=== PATIENT | male | born 1955 | race Caucasian/White ===

== ENCOUNTER 2016-11-08 17:30 | Inpatient (IN) | payer SELFPAY ==
[~2016-11-08] VITALS: Ht 170.2 cm; Wt 63.0 kg
[~2016-11-08 17:30] MED LIST: BUPR150T3 PO; MIRTA15 PO; TEGR100T PO; VIST50CA PO
[2016-11-08 17:41] VITALS: BP 90/67; PULSE 72; RESP 25; O2SAT 95
--- NOTE | 2016-11-08 18:19 | PD ---
HPI Chief Complaint: OD/ Ingestion Time Seen by Provider: 18:02 Travel History International Travel<30 days: No Contact w/Intl Traveler<30days: No Traveled to known affect area: No History of Present Illness HPI 61yo M with PMH of psych and hepatitis here with multiple complaints. As per [facility], pt was called by his mentally retarded son for being unresponsive and states his son was doing CPR but his eyes were open. States that narcan 0.4mg was given and pt became more awake and answer some questions. Pt admits to sniffing heroin. States he did too much. He is complaining of neck pain, bilateral shoulder pain, numbness in his legs. Pt is a poor history. States he cannot move his legs. Allergies-Medications (Allergen,Severity, Reaction): Coded Allergies: penicillin G (Unverified Allergy, Severe, SWELLING, 11/08/16) vancomycin (Unverified Allergy, Severe, BP ELEVATION, 11/08/16) Reported Meds & Prescriptions Reported Meds & Active Scripts Active Reported Remeron (Mirtazapine) 15 Mg Tab 15 Mg PO HS Tegretol-Xr (Carbamazepine) 100 Mg Tab 100 Mg PO TID Bupropion Hcl Xl (Bupropion HCl) 150 Mg Tab 150 Mg PO BID Vistaril (Hydroxyzine Pamoate) 50 Mg Cap 150 Mg PO BID Review of Systems Except as stated in HPI: all other systems reviewed are Neg Physical Exam Narrative GENERAL: 61yo M in mild distress. SKIN: Focused skin assessment warm/dry. HEAD: Atraumatic. Normocephalic. EYES: Pupils equal and round. No scleral icterus. No injection or drainage. ENT: No nasal bleeding or discharge. Mucous membranes pink and moist. NECK: +TTP cervical spine. Cervical spine collar placed. CARDIOVASCULAR: Regular rate and rhythm. No murmur appreciated. RESPIRATORY: No accessory muscle use. Clear to auscultation. Breath sounds equal bilaterally. GASTROINTESTINAL: Abdomen soft, non-tender, nondistended. No rebound tenderness or guarding. MUSCULOSKELETAL: No obvious deformities. No clubbing. No cyanosis. No edema. NEUROLOGICAL: AAOx2. No withdrawal from pain in bilateral lower extremity. Muscle strength 3/5 in bilateral upper extremity but unknown if it is due to shoulder pain. Decreased sensation in bilateral medial thigh. Rectal tone does seem decreased. Data Data Last Documented VS Vital Signs Date Time Temp Pulse Resp B/P (MAP) Pulse Ox O2 Delivery O2 Flow Rate FiO2 11/08/16 18:04 24 Nasal Cannula 1.00 11/08/16 17:41 72 90/67 (75) 95 Orders Orders Complete Blood Count With Diff (11/08/16 18:02) Basic Metabolic Panel (Bmp) (11/08/16 18:02) Ct Brain W/O Iv Contrast(Rout) (11/08/16 ) Ct Cerv Spine W/O Contrast (11/08/16 ) Chest, Single Ap (11/08/16 ) Apply Cervical Collar (11/08/16 18:02) Shoulder, Limited(2vws) (11/08/16 ) Shoulder, Limited(2vws) (11/08/16 ) Sodium Chlor 0.9% 1000 Ml Inj (Ns 1000 M (11/08/16 18:30) Lithograph Press Operator / Telemetry LEIDY.Q8H (11/08/16 18:20) End Tidal Co2 (Etco2) (11/08/16 ) Mri L Spine W/O Contrast (11/08/16 ) Drug Screen, Random Urine (11/08/16 19:00) Alcohol (Ethanol) (11/08/16 19:02) Salicylates (Aspirin) (11/08/16 19:02) Tylenol (Acetaminophen) (11/08/16 19:02) Labs Laboratory Tests Test 11/08/16 18:05 11/08/16 18:15 11/08/16 19:05 Blood Urea Nitrogen 36 MG/DL Creatinine 2.12 MG/DL Random Glucose 95 MG/DL Calcium Level 8.6 MG/DL Sodium Level 140 MEQ/L Potassium Level 3.9 MEQ/L Chloride Level 108 MEQ/L Carbon Dioxide Level 23.1 MEQ/L Anion Gap 9 MEQ/L Estimat Glomerular Filtration Rate 32 ML/MIN White Blood Count 12.2 TH/MM3 Red Blood Count 3.43 MIL/MM3 Hemoglobin 10.6 GM/DL Hematocrit 31.9 % Mean Corpuscular Volume 93.1 FL Mean Corpuscular Hemoglobin 30.9 PG Mean Corpuscular Hemoglobin Concent 33.2 % Red Cell Distribution Width 12.8 % Platelet Count 161 TH/MM3 Mean Platelet Volume 8.5 FL Neutrophils (%) (Auto) 93.5 % Lymphocytes (%) (Auto) 2.3 % Monocytes (%) (Auto) 4.0 % Eosinophils (%) (Auto) 0.2 % Basophils (%) (Auto) 0.0 % Neutrophils # (Auto) 11.4 TH/MM3 Lymphocytes # (Auto) 0.3 TH/MM3 Monocytes # (Auto) 0.5 TH/MM3 Eosinophils # (Auto) 0.0 TH/MM3 Basophils # (Auto) 0.0 TH/MM3 CBC Comment DIFF FINAL Differential Comment MDM Medical Decision Making Medical Screen Exam Complete: Yes Emergency Medical Condition: Yes Differential Diagnosis Cauda equina syndrome vs. heroin overdose vs. cervical spine fracture vs. psychosis Narrative Course 61yo M with heroin overdose s/p narcan by EVAC here with multiple complaints. Pt is a poor historian. BP was low and NS IVF given. Labs reviewed, mild leukocytosis at 12.2. H/H low at 10.6/31.9. Creatinine elevated at 2.12, no prior to compare. CXR was completed because there was supposedly CPR performed by son. CXR showed no acute cardiopulmonary abnormality. No PTX. Xray right shoulder negative. Xray left shoulder negative. CT brain, cspine and MRI LS is pending. Care is transferred to oncoming physician Dr. Farrar. Pt is currently still awake and no narcan needed in the ED. Pt placed on continuous cardiac monitoring. Diagnosis Primary Impression: Heroin overdose Qualified Codes: T40.1X1A - Poisoning by heroin, accidental (unintentional), initial encounter Imani Wang DO Nov 08, 2016 18:19
[2016-11-08] MEDS ORDERED: SODIUM CHLOR 0.9% 1000 ML INJ 1,000 ML IV ONE (18:30)
--- NOTE | 2016-11-08 18:50 | RADRPT ---
EXAM DATE/TIME: 11/08/2016 18:31 [facility] COMPARISON: No previous studies available for comparison. INDICATIONS : Evaluate lung status. CPR performed on patient tonight. Overdose. MEDICAL HISTORY : Unobtainable. SURGICAL HISTORY : Unobtainable. ENCOUNTER: Initial ACUITY: 1 day PAIN SCORE: Non-responsive. LOCATION: Bilateral chest FINDINGS: Portable AP view of the chest demonstrates a normal-sized cardiac silhouette. No effusion, consolidat ion, or pneumothorax is visualized. The bones and soft tissues demonstrate no acute abnormality. Lung s are underinflated. CONCLUSION: No acute cardiopulmonary abnormality is identified. Jerry Ghotra MD on November 08, 2016 at 18:48 Board Certified Radiologist. This report was verified electronically.
--- NOTE | 2016-11-08 18:51 | RADRPT ---
EXAM DATE/TIME: 11/08/2016 18:32 [facility] COMPARISON: No previous studies available for comparison. INDICATIONS : Left shoulder pain. Patient found unresponsive. MEDICAL HISTORY : Unobtainable. SURGICAL HISTORY : Unobtainable. ENCOUNTER: Initial ACUITY: 1 day PAIN SCORE: Non-responsive. LOCATION: Left shoulder. FINDINGS: 2 views of the left shoulder demonstrate no fracture or dislocation. The acromioclavicular joint is i ntact. No soft tissue abnormality is identified. The visualized portions of the left lung are clear and no displaced rib fracture is seen. CONCLUSION: No acute left shoulder abnormality is identified on this two-view examination. There is osteoarthriti s at the acromioclavicular joint. Jerry Ghotra MD on November 08, 2016 at 18:48 Board Certified Radiologist. This report was verified electronically.
--- NOTE | 2016-11-08 18:51 | RADRPT ---
EXAM DATE/TIME: 11/08/2016 18:35 [facility] COMPARISON: No previous studies available for comparison. INDICATIONS : Right shoulder pain. Patient found unresponsive. MEDICAL HISTORY : Unobtainable. SURGICAL HISTORY : Unobtainable. ENCOUNTER: Initial ACUITY: 1 day PAIN SCORE: Non-responsive. LOCATION: Right shoulder. FINDINGS: 2 views of the right shoulder demonstrate no fracture or dislocation. The acromioclavicular joint is intact but demonstrates mild osteoarthritis change. The visualized soft tissues demonstrate no abnorm ality. Visualized portions of the right lung are clear. No displaced rib fracture is seen. CONCLUSION: No acute right shoulder abnormality is identified. Jerry Ghotra MD on November 08, 2016 at 18:49 Board Certified Radiologist. This report was verified electronically.
[2016-11-08 19:01] LABS: AUTOMATED NEUTROPHIL # 11.4 TH/MM3 (1.8-7.7); EOSINOPHIL % 0.2 % (0.0-4.0); HEMATOCRIT 31.9 % (39.0-51.0); HEMO FLAGS DIFF FINAL; LYMPH % 2.3 % (9.0-44.0); LYMPHOCYTE # 0.3 TH/MM3 (1.0-4.8); MEAN CELL VOLUME 93.1 FL (80.0-100.0); MEAN CORPUSCULAR HEMOGLOBIN 30.9 PG (27.0-34.0); MEAN CORPUSCULAR HGB CONC 33.2 % (32.0-36.0); NEUT % 93.5 % (16.0-70.0); PLATELET COUNT 161 TH/MM3 (150-450); RED BLOOD COUNT 3.43 MIL/MM3 (4.50-5.90); RED CELL DISTRIBUTION WIDTH 12.8 % (11.6-17.2); WHITE BLOOD COUNT 12.2 TH/MM3 (4.0-11.0)
[2016-11-08 19:17] LABS: BICARBONATE 23.1 MEQ/L (21.0-32.0); POTASSIUM 3.9 MEQ/L (3.5-5.1)
--- NOTE | 2016-11-08 19:34 | RADRPT ---
EXAM DATE/TIME: 11/08/2016 18:39 [facility] COMPARISON: No previous studies available for comparison. INDICATIONS : Patient found unresponsive. RADIATION DOSE: 20.74 CTDIvol (mGy) MEDICAL HISTORY : Non-responsive. SURGICAL HISTORY : Non-responsive. ENCOUNTER: Initial ACUITY: 1 day PAIN SCALE: Non-responsive LOCATION: Bilateral Spine TECHNIQUE: Volumetric scanning of the cervical spine was performed. Multiplanar reconstructions in the sagittal, coronal and oblique axial planes were performed. Using automated exposure control and adjustment o f the mA and/or kV according to patient size, radiation dose was kept as low as reasonably achievable to obtain optimal diagnostic quality images. DICOM format image data is available electronically f or review and comparison. FINDINGS: There is normal sagittal spine alignment of the cervical spine. No anterolisthesis or retrolisthesis is present. The atlantoaxial relationship is within normal limits. There is no prevertebral soft tiss ue swelling present. No fracture or dislocation is identified. There is degenerative disc disease at C5-C6 and C6-C7. A partially calcified chronic disc protrusion is present at C3-C4. The visualized portions of the posterior fossa, paraspinous soft tissues, and upper lung zones demons trate no acute abnormality. CONCLUSION: 1. No acute cervical spine abnormality is identified. 2. Multilevel degenerative disc disease. Jerry Ghotra MD on November 08, 2016 at 19:29 Board Certified Radiologist. This report was verified electronically.
[2016-11-08 19:53] LABS: ACETAMINOPHEN LESS THAN 2.0 MCG/ML (10.0-30.0)
--- NOTE | 2016-11-08 19:54 | RADRPT ---
EXAM DATE/TIME: 11/08/2016 18:39 [facility] COMPARISON: No previous studies available for comparison. INDICATIONS : Found unresponsive after using heroin. RADIATION DOSE: 31.84 CTDIvol (mGy) MEDICAL HISTORY : Non-responsive. SURGICAL HISTORY : Non-responsive. ENCOUNTER: Initial ACUITY: 1 day PAIN SCALE: Non-responsive LOCATION: Bilateral cranial TECHNIQUE: Multiple contiguous axial images were obtained of the head. Using automated exposure control and adj ustment of the mA and/or kV according to patient size, radiation dose was kept as low as reasonably a chievable to obtain optimal diagnostic quality images. DICOM format image data is available electro nically for review and comparison. FINDINGS: CEREBRUM: The ventricles are normal. No evidence of midline shift, mass lesion, hemorrhage or acute infarction . No extra-axial fluid collections are seen. POSTERIOR FOSSA: The cerebellum and brainstem demonstrate no acute finding. The 4th ventricle is midline. The cerebe llopontine angle is unremarkable. EXTRACRANIAL: Visualized sinuses are clear. SKULL: The calvaria is intact. No evidence of skull fracture. CONCLUSION: No acute intracranial abnormality is identified. Jerry Ghotra MD on November 08, 2016 at 19:51 Board Certified Radiologist. This report was verified electronically.
[2016-11-08 20:08] LABS: ALCOHOL LESS THAN 3 MG/DL (0-5)
--- NOTE | 2016-11-08 20:21 | RADRPT ---
EXAM DATE/TIME: 11/08/2016 19:29 [facility] COMPARISON: No previous studies available for comparison. INDICATIONS : Lower extremity weakness after fall. MEDICAL HISTORY : Hepatitis C. Hypertension. SURGICAL HISTORY : Left wrist. Left ankle. ENCOUNTER: Subsequent ACUITY: 1 day PAIN SCORE: 0/10 LOCATION: back. TECHNIQUE: Multiplanar multisequence MRI of the lumbar spine was performed without contrast. FINDINGS: The most caudal appearing lumbar vertebra is numbered as L5. VERTEBRAE: Bone marrow signal is within normal limits. No fracture or compression deformity is present. There is 4 mm of anterolisthesis of L4 on L5. CONUS: Normal level and configuration. T12-L1: No disc herniation, canal stenosis, or neural foraminal stenosis. L1-L2: No disc herniation, canal stenosis, or neural foraminal stenosis. L2-L3: There is a diffuse disc bulge with possible small annular tear posteriorly. No canal stenosis or neur al foraminal stenosis is present. L3-L4: There is bilateral facet and ligamentum flavum hypertrophy with fluid in the facet joints. Minimal di ffuse disc bulge is present. There is no canal stenosis or neural foraminal narrowing. L4-L5: There is severe facet hypertrophy bilaterally with fluid in the facet joints. A moderate-sized diffus e disc bulge is present mildly effacing the lateral recesses and minimally narrowing the spinal canal . There is also mild bilateral neural foraminal narrowing. L5-S1: There are pars interarticularis defects without displacement. Bilateral facet hypertrophy is present. There is a diffuse disc bulge but no canal stenosis or neural foraminal narrowing is seen. There is a large cystic structure in the midline of the pelvis. CONCLUSION: 1. Grade 1 anterolisthesis at L4-L5 secondary to severe facet hypertrophy. Diffuse disc bulges presen t very mildly narrowing the spinal canal and there is mild neural foraminal narrowing bilaterally. 2. 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 3. Very large cystic structure within the pelvis presumably a very distended urinary bladder since it appears midline. Suggest correlation with the clinical examination. Jerry Ghotra MD on November 08, 2016 at 20:14 Board Certified Radiologist. This report was verified electronically.
--- NOTE | 2016-11-08 20:33 | PD ---
Physical Exam Date Seen by Provider: Nov 08, 2016 Data Data Last Documented VS Vital Signs Date Time Temp Pulse Resp B/P (MAP) Pulse Ox O2 Delivery O2 Flow Rate FiO2 11/08/16 21:33 70 16 100/60 (73) 95 Room Air 11/08/16 18:04 1.00 Orders Orders Complete Blood Count With Diff (11/08/16 18:02) Basic Metabolic Panel (Bmp) (11/08/16 18:02) Ct Brain W/O Iv Contrast(Rout) (11/08/16 ) Ct Cerv Spine W/O Contrast (11/08/16 ) Chest, Single Ap (11/08/16 ) Apply Cervical Collar (11/08/16 18:02) Shoulder, Limited(2vws) (11/08/16 ) Shoulder, Limited(2vws) (11/08/16 ) Sodium Chlor 0.9% 1000 Ml Inj (Ns 1000 M (11/08/16 18:30) Outreach Consultant / Telemetry LEIDY.Q8H (11/08/16 18:20) End Tidal Co2 (Etco2) (11/08/16 ) Mri L Spine W/O Contrast (11/08/16 ) Drug Screen, Random Urine (11/08/16 19:00) Alcohol (Ethanol) (11/08/16 19:02) Salicylates (Aspirin) (11/08/16 19:02) Tylenol (Acetaminophen) (11/08/16 19:02) Bladder Scan PRN (11/08/16 21:28) Salicylates (Aspirin) (11/08/16 23:05) Admit Order (Ed Use Only) (11/08/16 21:39) Labs Laboratory Tests Test 11/08/16 18:05 11/08/16 18:15 11/08/16 19:05 Blood Urea Nitrogen 36 MG/DL Creatinine 2.12 MG/DL Random Glucose 95 MG/DL Calcium Level 8.6 MG/DL Sodium Level 140 MEQ/L Potassium Level 3.9 MEQ/L Chloride Level 108 MEQ/L Carbon Dioxide Level 23.1 MEQ/L Anion Gap 9 MEQ/L Estimat Glomerular Filtration Rate 32 ML/MIN Acetaminophen Level LESS THAN 2.0 MCG/ML Ethyl Alcohol Level LESS THAN 3 MG/DL White Blood Count 12.2 TH/MM3 Red Blood Count 3.43 MIL/MM3 Hemoglobin 10.6 GM/DL Hematocrit 31.9 % Mean Corpuscular Volume 93.1 FL Mean Corpuscular Hemoglobin 30.9 PG Mean Corpuscular Hemoglobin Concent 33.2 % Red Cell Distribution Width 12.8 % Platelet Count 161 TH/MM3 Mean Platelet Volume 8.5 FL Neutrophils (%) (Auto) 93.5 % Lymphocytes (%) (Auto) 2.3 % Monocytes (%) (Auto) 4.0 % Eosinophils (%) (Auto) 0.2 % Basophils (%) (Auto) 0.0 % Neutrophils # (Auto) 11.4 TH/MM3 Lymphocytes # (Auto) 0.3 TH/MM3 Monocytes # (Auto) 0.5 TH/MM3 Eosinophils # (Auto) 0.0 TH/MM3 Basophils # (Auto) 0.0 TH/MM3 CBC Comment DIFF FINAL Differential Comment Salicylates Level 23.5 MG/DL MDM Medical Record Reviewed: Yes Supervised Visit with DHIRAJ: No Interpretation(s) Vital Signs Date Time Temp Pulse Resp B/P (MAP) Pulse Ox O2 Delivery O2 Flow Rate FiO2 11/08/16 18:04 24 Nasal Cannula 1.00 11/08/16 17:41 72 25 90/67 (75) 95 CBC & BMP Diagram 11/08/16 18:05 Calcium Level 8.6 11/08/16 18:15 Differential Diagnosis Differential includes cauda equina, psychogenic versus neurological gait dysfunction, cervical spine fracture, intracranial hemorrhage, psychosis, electrolyte abnormality Narrative Course Patient was sent out to me by Dr. Wang and change of shift. Patient pending MRI/ ct results and dispo Patient is 61-year-old male who presents to emergency room with multiple complaints. Patient endorsed to me that he was washing his dishes today and fell backwards and hit his head on his bed. Patient reports that he was able to get up and walk after this and began to wash dishes again, reports that he has not remember what happened after this. Patient told my colleague that he was snorting heroin today and accidentally overdose, reports that he doesn't remember what happened after this. He does remember taking aspirin as well as acetaminophen as he is chronic pains to his left ankle. He took these medications this morning for pain control and not in attempt to commit suicide. As per EMS, when they arrived on scene, patient's son Was Performing CPR. Patient was given 0.4 mg of Narcan. Patient was arousable after Narcan was administered, reports that he was complaining of neck pain, bilateral shoulder pain as well as inability to walk. CT of the head, cervical spine, bilateral shoulders, x-ray of the chest and MRI of L-spine was obtained. X-rays with benign except that patient does have osteoarthritis to the left shoulder. MRI of the L-spine shows grade 1 anterolisthesis at L4 to L5 secondary to severe facet hypertrophy. 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 There is a very large thick structure within the pelvis presumably very distended urinary bladder. Bladder scan ordered. Patient is unable to ambulate this time, he is unable to move his legs, he does not respond to painful stimuli of his lower extremities. Given that he cannot ambulate and move extremities, plan to admit him to the hospital as I am unsure why patient cannot ambulate. This concerns for possible aspirin overdose, ASA 23.5 - patient will need a repeat asa level at 2305 Patient will require admission to the hospital case reviewed with dr. anthony who accepts pt to service Critical Care Narrative Aggregate critical care time was 45 minutes. Time to perform other separately billable procedures was not included in the critical care time. My time did not include minutes spent treating any other patients simultaneously or on activities that did not directly contribute to the patient's treatment. The services I provided to this patient were to treat and/or prevent clinically significant deterioration that could result in: , decompensation, deterioration I provided critical care services requiring my management, as noted below: Chart data review, documentation time, medication orders and management, vital sign assessments/reviewing monitor data, ordering and reviewing lab tests, ordering and interpreting/reviewing x-rays and diagnostic studies, care of the patient and discussion of the patient with the admitting physicians. Diagnosis Primary Impression: Heroin overdose Qualified Codes: T40.1X1A - Poisoning by heroin, accidental (unintentional), initial encounter Additional Impressions: Neurologic gait dysfunction Accidental aspirin overdose Renal insufficiency Admitting Information Admitting Physician Requests: Michelle Forrester DO Nov 08, 2016 20:33
[2016-11-08 21:33] VITALS: BP 100/60; PULSE 70; RESP 16; O2SAT 95
[2016-11-08] MEDS ORDERED: NALOXONE HCL 0.4 MG/ML AMP IV PRN (21:45)
[2016-11-08] MEDS ORDERED: SODIUM CHLORIDE 0.9% FLUSH 10 ML FLUSH IV FLUSH PRN (21:45)
[2016-11-08 23:54] VITALS: BP 98/60; PULSE 70; RESP 16; O2SAT 95
[2016-11-09] VITALS (13 sets, daily range): BP systolic 96–113; BP diastolic 56–67; PULSE 60–82; RESP 16–22; TEMP 97.6–99.6; O2SAT 95–98
[2016-11-09] MEDS ORDERED: WELLBUTRIN PO (00:02)
[2016-11-09] MEDS ORDERED: XANA2TAB2 PO (00:02)
[2016-11-09] MEDS ORDERED: TRAZ300T2 PO (00:02)
[2016-11-09] MEDS ORDERED: TEGR200T PO (00:02)
[2016-11-09] MEDS: SODIUM CHLOR 0.9% 1000 ML INJ 1,000 ML IV SCH ×2 (08:18→22:50)
[2016-11-09] MEDS: SODIUM CHLORIDE 0.9% FLUSH 10 ML FLUSH IV FLUSH SCH ×2 (08:19→21:00)
[2016-11-09] MEDS ORDERED: PNEUMOCOCCAL POLYVALENT INJ 25 MCG/0.5 ML SYR IM ONE (09:00)
[2016-11-09 10:26] LABS: AUTOMATED NEUTROPHIL # 10.9 TH/MM3 (1.8-7.7); HEMATOCRIT 30.1 % (39.0-51.0); HEMO FLAGS DIFF FINAL; LYMPH % 1.4 % (9.0-44.0); LYMPHOCYTE # 0.2 TH/MM3 (1.0-4.8); MEAN CORPUSCULAR HEMOGLOBIN 31.2 PG (27.0-34.0); MEAN CORPUSCULAR HGB CONC 33.6 % (32.0-36.0); MONO % 3.9 % (0.0-8.0); NEUT % 94.7 % (16.0-70.0); PLATELET COUNT 166 TH/MM3 (150-450); RED BLOOD COUNT 3.23 MIL/MM3 (4.50-5.90); WHITE BLOOD COUNT 11.6 TH/MM3 (4.0-11.0)
[2016-11-09 10:53] LABS: BICARBONATE 21.1 MEQ/L (21.0-32.0); POTASSIUM 3.6 MEQ/L (3.5-5.1)
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
[2016-11-09] MEDS: traZODone HCL 100 MG TAB PO SCH ×2 (14:14→18:32)
[2016-11-09] MEDS: BACLOFEN 10 MG TAB PO SCH ×2 (14:15→22:51)
[2016-11-09] MEDS: carBAMazepine 200 MG TAB PO SCH ×2 (14:15→18:32)
[2016-11-09] MEDS: ALPRAZolam 1 MG TAB PO PRN (14:19)
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
--- NOTE | 2016-11-09 17:35 | RADRPT ---
EXAM DATE/TIME: 11/09/2016 16:18 [facility] COMPARISON: CT CERVICAL SPINE W/O CONTRAST, November 08, 2016, 18:39. INDICATIONS : Inability to ambulate. MEDICAL HISTORY : Hepatitis C. SURGICAL HISTORY : Pins in left wrist and left ankle. ENCOUNTER: Subsequent ACUITY: 2 day PAIN SCORE: 0/10 LOCATION: neck. TECHNIQUE: Multiplanar, multisequence MRI examination of the cervical spine was performed. FINDINGS: There is diffuse disc desiccation however there is slight increased signal at C5-6 and C6-7 disc spac es. moderate disc space narrowing at C5-6 and C6-7. Mild multilevel osteophyte formation. There is mi ld diffuse increased T2 signal within the cervical spinal cord from C3 through C7. There is preverteb ral soft tissue swelling in the retropharyngeal edema. C2-C3: The thecal sac has a normal configuration. There is no evidence of disc herniation or spinal canal s tenosis. The neural foramina are patent bilaterally. C3-C4: Broad-based central disc protrusion with mass effect on the cord and moderate canal narrowing. C4-C5: Tiny broad-based central protrusion effaces the thecal sac with moderate canal narrowing. Facet and u ncovertebral hypertrophy and mild bilateral foraminal narrowing. C5-C6: Diffuse disc osteophyte complex. Uncovertebral hypertrophy and severe right greater than left foramin al narrowing. Moderate canal stenosis with effacement of ventral thecal sac. C6-C7: Diffuse disc osteophyte complex with mild canal narrowing. Uncovertebral hypertrophy and severe right greater than left foraminal narrowing. C7-T1: Left central disc protrusion abuts the cord with mild canal, no foraminal narrowing. CONCLUSION: 1. Moderate multilevel canal stenosis secondary to degenerative disc disease. 2. There is associated mild impression on the cord and abnormal increased T2 signal within the spinal cord. It is difficult to exclude mild expansion of the cord on sagittal series. 3. There is mild prevertebral soft tissue swelling identified. Petey Oseguera MD on November 09, 2016 at 17:27 Board Certified Radiologist. This report was verified electronically.
--- NOTE | 2016-11-09 17:41 | RADRPT ---
EXAM DATE/TIME: 11/09/2016 16:18 [facility] COMPARISON: CT BRAIN W/O CONTRAST, November 08, 2016, 18:39. INDICATIONS : Inability to ambulate. MEDICAL HISTORY : Hepatitis C. SURGICAL HISTORY : Pins in left wrist and left ankle. ENCOUNTER: Subsequent ACUITY: 2 day PAIN SCORE: 0/10 LOCATION: head. TECHNIQUE: Multiplanar, multisequence MRI of the brain was performed without contrast. FINDINGS: There is a focal area of restricted diffusion in the left cerebellar hemisphere felt to represent an acute to subacute area of infarction. There is no surrounding edema. No other foci of infarction are seen. There is no evidence of intracranial hemorrhage. No concerning masses. CONCLUSION: 1. Left cerebellar infarct, lacunar. Petey Oseguera MD on November 09, 2016 at 17:38 Board Certified Radiologist. This report was verified electronically.
--- NOTE | 2016-11-09 17:51 | RADRPT ---
EXAM DATE/TIME: 11/09/2016 16:18 [facility] COMPARISON: MRI BRAIN W/O CONTRAST, November 09, 2016, 16:18. MRI CERVICAL SPINE W/O CONTRAST, November 09, 2016, 16 :18. INDICATIONS : Inability to ambulate. MEDICAL HISTORY : Hepatitis C. SURGICAL HISTORY : Pins in left wrist and left ankle. ENCOUNTER: Subsequent ACUITY: 2 day PAIN SCORE: 0/10 LOCATION: back. TECHNIQUE: Multiplanar multisequence MRI of the thoracic spine was performed. FINDINGS: VERTEBRA: Normal vertebral body height. Homogeneous marrow signal. There is slight disc desiccation. Minimal a nterior osteophyte formation greatest at T11 and T12. There is degenerative disc disease within the c ervical spine which is incompletely evaluated on this study. ALIGNMENT: Normal. CORD: Normal position and configuration. T1-T2: Normal. T2-T3: The thecal sac has a normal diameter. No evidence of disc bulge or protrusion. T3-T4: The thecal sac has a normal diameter. No evidence of disc bulge or protrusion. T4-T5: The thecal sac has a normal diameter. No evidence of disc bulge or protrusion. T5-T6: The thecal sac has a normal diameter. No evidence of disc bulge or protrusion. T6-T7: A tiny central disc protrusion without canal or foraminal narrowing. T7-T8: The thecal sac has a normal diameter. No evidence of disc bulge or protrusion. T8-T9: The thecal sac has a normal diameter. No evidence of disc bulge or protrusion. T9-T10: Tiny right central disc bulge with no canal or foraminal narrowing. T10-T11: The thecal sac has a normal diameter. No evidence of disc bulge or protrusion. T11-T12: The thecal sac has a normal diameter. No evidence of disc bulge or protrusion. T12-L1: The thecal sac has a normal diameter. No evidence of disc bulge or protrusion. CONCLUSION: 1. There is degenerative disc disease of the cervical spine which is incompletely evaluated on this s tudy. 2. The thoracic spine is normal for age with minimal degenerative changes and no canal or foraminal s tenosis. Petey Oseguera MD on November 09, 2016 at 17:48 Board Certified Radiologist. This report was verified electronically.
[2016-11-09] MEDS ORDERED: DEXTROSE 50% IN WATER 50 ML VIAL(D50) IV PUSH PRN (18:00)
[2016-11-09] MEDS ORDERED: SODIUM CHLORIDE 0.9% FLUSH 5 ML FLUSH IV FLUSH PRN (18:00)
[2016-11-09] MEDS ORDERED: GLUCAGON 1 MG/ML VIAL OTHER PRN (18:00)
[2016-11-09 18:16] LABS: BACTERIA, URINE RARE /hpf; BLOOD, URINE LARGE (NEG); COMMENT (UR) CULTURE INDICATED; CULTURE IF INDICATED CULTURE INDICATED; GLUCOSE,URINE NEG (NEG); HYALINE CAST, URINE 2 /lpf (RARE); KETONE, URINE NEG (NEG); NITRITE,URINE NEG (NEG); PH, URINE 5.5 (5.0-8.5); URINE COLOR YELLOW (YELLW/STRAW)
[2016-11-09] MEDS: ASPIRIN 81 MG CHEW TAB PO SCH (18:32)
--- NOTE | 2016-11-09 20:20 | MG ---
cc: MIGUELANGEL KING MD Lab No: Date: 11/09/16 Age: 61 Sex: M Race: DATE OF [address] Cowan MEDICAL HISTORY History of hypertension, chest pain, psychiatric problems, PTSD, bipolar depression, anxiety. Daily use of heroin, Xanax use, caffeine and tobacco use. MEDICATIONS 1. Remeron. 2. Tegretol XR. 3. Bupropion. 4. Vistaril. DESCRIPTION The EEG recording is excessively contaminated by movement and muscle artifact. In the readable portion of the EEG the background activity is 8-9 Hz alpha posterior, bilateral and symmetrical. Superimposed by excess beta activity. Hyperventilation was not done. Photic stimulation did not elicit a driving response. There were no electrographic seizures or epileptiform discharges seen. INTERPRETATION This is a normal awake EEG. Excess beta activity is a nonspecific finding that may be related to medication side effects like benzos and barbiturates. There is excessive movement and muscle artifact during the recording that limit the interpretation of the EEG. For a better yield you may do a follow up EEG, clinical correlation is recommended. Miguelangel King MD RGO/SUZY /4:04 PM /8:12 PM MTDD
[2016-11-09] MEDS: INSULIN ASPART SUPPLEMENTAL SCALE SQ SCH (21:00)
[2016-11-09 22:39] LABS: HEMOGLOBIN A1a 0.8 %; HEMOGLOBIN A1b 1.8 %; HEMOGLOBIN LA1C 2.2 %
[2016-11-09 22:40] LABS: HEMOGLOBIN Ao 85.2 %
[2016-11-09] MEDS: SODIUM CHLORIDE 0.9% FLUSH 5 ML FLUSH IV FLUSH SCH (22:51)
--- NOTE | 2016-11-09 23:05 | RADRPT ---
EXAM DATE/TIME: 11/09/2016 21:00 [facility] COMPARISON: No previous studies available for comparison. INDICATIONS : Cerebrovascular accident. MEDICAL HISTORY : Hypertension. Possible PA. Possible CHF. PTSD. Bipolar disorder. Depression. Anxiety. Hepatitis. Substance abuse. SURGICAL HISTORY : Left ankle surgery. Left wrist surgery. ENCOUNTER: Initial ACUITY: 1 day PAIN SCORE: Nonresponsive. LOCATION: Bilateral neck PEAK SYSTOLIC VELOCITIES (cm/sec): ICA/CCA RATIO: Right: 1.0 Left: 0.6 ICA: Right: 74 Left: 72 CCA: Right: 88 Left: 119 ECA: Right: 88 Left: 101 VERTEBRAL: Right: 120 antegrade Left: 132 antegrade Elevated flow velocities and ICA/CCA ratios have been found to correlate with increased degrees of vessel stenosis, calculated as percentage of diameter relative to a normal segment of distal ICA/CCA FINDINGS: RIGHT CAROTID: No significant stenosis is visualized. The waveforms are within normal limits. LEFT CAROTID: No significant stenosis is visualized. The waveforms are within normal limits. VERTEBRAL ARTERIES: Antegrade flow is seen in both vertebral arteries. MISCELLANEOUS: None. CONCLUSION: 1. Negative for carotid stenosis or significant plaque formation. Vertebral artery flow antegrade joceline aterally. Aldair Garcia MD on November 09, 2016 at 23:03 Board Certified Radiologist. This report was verified electronically.
[2016-11-10] VITALS (14 sets, daily range): BP systolic 117–154; BP diastolic 67–94; PULSE 69–91; RESP 18–24; TEMP 98.5–103; O2SAT 20–96
[2016-11-10 04:46] LABS: LYMPH % 2.5 % (9.0-44.0); LYMPHOCYTE # 0.2 TH/MM3 (1.0-4.8); MEAN CELL VOLUME 92.2 FL (80.0-100.0); MEAN CORPUSCULAR HEMOGLOBIN 30.7 PG (27.0-34.0); MEAN CORPUSCULAR HGB CONC 33.3 % (32.0-36.0); MONO % 5.3 % (0.0-8.0); NEUT % 92.2 % (16.0-70.0); PLATELET COUNT 173 TH/MM3 (150-450); RED BLOOD COUNT 3.14 MIL/MM3 (4.50-5.90); RED CELL DISTRIBUTION WIDTH 13.4 % (11.6-17.2); WHITE BLOOD COUNT 8.7 TH/MM3 (4.0-11.0)
[2016-11-10 04:48] LABS: HEMO FLAGS AUTO DIFF
[2016-11-10 05:12] LABS: ALT (GPT) 32 U/L (12-78); ANION GAP 9 MEQ/L (5-15); AST (GOT) 61 U/L (15-37); BICARBONATE 21.9 MEQ/L (21.0-32.0); BLOOD UREA NITROGEN 65 MG/DL (7-18); CHLORIDE 104 MEQ/L (98-107); GLOMERULAR FILTRATION RATE 29 ML/MIN (>89); SODIUM (NA) 135 MEQ/L (136-145)
[2016-11-10 05:25] LABS: ALKALINE PHOSPHATASE 87 U/L (45-117); HDL CHOLESTEROL 25.8 MG/DL (40.0-60.0); LDL CHOLESTEROL 46 MG/DL (0-99); TOTAL BILIRUBIN ADULT 0.4 MG/DL (0.2-1.0)
[2016-11-10] MEDS: BACLOFEN 10 MG TAB PO SCH ×3 (05:34→23:01)
[2016-11-10] MEDS: INSULIN ASPART SUPPLEMENTAL SCALE SQ SCH (05:38)
[2016-11-10 06:33] LABS: BANDS 5 % (0-6); NEUTROPHIL # MANUAL DIFF 8.4 TH/MM3 (1.8-7.7); POLYS (SEG NEUTROPHILS) 91 % (16-70); WBC DIFF SAMPLE 100
[2016-11-10 06:34] LABS: SCAN/DIFF FINAL DIFF MANUAL
[2016-11-10 06:35] LABS: PLATELET ESTIMATE SMEAR NORMAL (NORMAL); PLATELET MORPHOLOGY NORMAL (NORMAL)
[2016-11-10] MEDS: ACETAMINOPHEN 325 MG TAB PO PRN (07:49)
[2016-11-10] MEDS: traZODone HCL 100 MG TAB PO SCH (09:00)
[2016-11-10] MEDS: SODIUM CHLORIDE 0.9% FLUSH 5 ML FLUSH IV FLUSH SCH ×2 (09:00→21:00)
[2016-11-10] MEDS ORDERED: CIPROFLOXACIN 200 MG PREMIX 100 ML IV SCH (09:00)
[2016-11-10] MEDS ORDERED: SODIUM CHLOR 0.9% 1000 ML INJ 1,000 ML IV ONE (09:15)
[2016-11-10] MEDS: carBAMazepine 200 MG TAB PO SCH ×3 (09:19→17:26)
[2016-11-10] MEDS: SODIUM CHLORIDE 0.9% FLUSH 10 ML FLUSH IV FLUSH SCH (09:19)
[2016-11-10] MEDS: ASPIRIN 81 MG CHEW TAB PO SCH (09:19)
--- NOTE | 2016-11-10 09:20 | HHI.PR ---
Subjective Remarks The patient is lethargic this morning. He reports excruciating lower back pain. He has developed a fever of 103. He is oriented to self only. He is not moving any of his extremities. He keeps his head deviated to the right. He is tachypneic on my exam. Objective Vitals Vital Signs Date Time Temp Pulse Resp B/P (MAP) Pulse Ox O2 Delivery O2 Flow Rate FiO2 11/10/16 08:15 21 11/10/16 07:26 103.0 91 18 121/73 (89) 94 11/10/16 04:10 84 11/10/16 03:48 100.6 82 21 121/69 (86) 95 11/10/16 00:15 69 11/09/16 22:59 98.4 68 20 98/56 (70) 95 11/09/16 20:41 21 11/09/16 20:37 98.6 60 22 103/62 (76) 95 11/09/16 20:15 62 11/09/16 17:30 69 11/09/16 17:28 98.3 69 16 108/67 (81) 96 11/09/16 12:10 82 11/09/16 11:11 97.8 70 16 101/63 (76) 95 I/O 11/09/16 11/09/16 11/09/16 11/10/16 11/10/16 11/10/16 06:59 14:59 22:59 06:59 14:59 22:59 Intake Total 1000 ml 1000 ml 1090 ml Balance 1000 ml 1000 ml 1090 ml Intake Oral 1000 ml 100 ml IV Total 1000 ml 990 ml # Voids 3 Result Diagram: 11/10/16 0415 11/10/16 0415 Imaging Last Impressions Thoracic Spine MRI 11/09/16 0000 Signed Impressions: Service Date/Time: Wednesday, November 09, 2016 16:18 - CONCLUSION: 1. There is degenerative disc disease of the cervical spine which is incompletely evaluated on this study. 2. The thoracic spine is normal for age with minimal degenerative changes and no canal or foraminal stenosis. Petey Oseguera MD Cervical Spine MRI 11/09/16 0000 Signed Impressions: Service Date/Time: Wednesday, November 09, 2016 16:18 - CONCLUSION: 1. Moderate multilevel canal stenosis secondary to degenerative disc disease. 2. There is associated mild impression on the cord and abnormal increased T2 signal within the spinal cord. It is difficult to exclude mild expansion of the cord on sagittal series. 3. There is mild prevertebral soft tissue swelling identified. Petey Oseguera MD Carotid Artery Ultrasound 11/09/16 0000 Signed Impressions: Service Date/Time: Wednesday, November 09, 2016 21:00 - CONCLUSION: 1. Negative for carotid stenosis or significant plaque formation. Vertebral artery flow antegrade bilaterally. Aldair Garcia MD Brain MRI 11/09/16 0000 Signed Impressions: Service Date/Time: Wednesday, November 09, 2016 16:18 - CONCLUSION: 1. Left cerebellar infarct, lacunar. Petey Oseguera MD Shoulder X-Ray 11/08/16 Signed Impressions: Service Date/Time: Tuesday, November 08, 2016 18:32 - CONCLUSION: No acute left shoulder abnormality is identified on this two-view examination. There is osteoarthritis at the acromioclavicular joint. Jerry Ghotra MD Lumbar Spine MRI 11/08/16 0000 Signed Impressions: Service Date/Time: Tuesday, November 08, 2016 19:29 - CONCLUSION: 1. Grade 1 anterolisthesis at L4-L5 secondary to severe facet hypertrophy. Diffuse disc bulges present very mildly narrowing the spinal canal and there is mild neural foraminal narrowing bilaterally. 2. 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 3. Very large cystic structure within the pelvis presumably a very distended urinary bladder since it appears midline. Suggest correlation with the clinical examination. Jerry Ghotra MD Head CT 11/08/16 0000 Signed Impressions: Service Date/Time: Tuesday, November 08, 2016 18:39 - CONCLUSION: No acute intracranial abnormality is identified. Jerry Ghotra MD Chest X-Ray 11/08/16 0000 Signed Impressions: Service Date/Time: Tuesday, November 08, 2016 18:31 - CONCLUSION: No acute cardiopulmonary abnormality is identified. Jerry Ghotra MD Cervical Spine CT 11/08/16 0000 Signed Impressions: Service Date/Time: Tuesday, November 08, 2016 18:39 - CONCLUSION: 1. No acute cervical spine abnormality is identified. 2. Multilevel degenerative disc disease. Jerry Ghotra MD Objective Remarks GENERAL: Lethargic. Reports excruciating back pain with any movements. Cannot move any extremities. CARDIOVASCULAR: Normal rate and regular rhythm without murmurs, gallops, or rubs. RESPIRATORY: Tachypneic. Diminished breath sounds at the bases. Otherwise clear to auscultation bilaterally. GASTROINTESTINAL: Abdomen soft, non-tender, non-distended. Normal active bowel sounds MUSCULOSKELETAL: Extremities without cyanosis, or edema. NEURO: Alert to self only. Can answer some simple questions. Cannot move any extremities. PSYCH: At times appeared to be hallucinating. A/P Assessment and Plan 61-year-old male with a medical history significant for psychiatric illness, chronic pain, opiate abuse who was admitted with possible overdose and decreased lower extremity strength. Patient is found to have a lacunar stroke. He also appear to be septic with no clear source of infection. CVA: - Per stroke protocol. Keep head of bed flat. Supportive care with IV fluid. Neurochecks. - Neurology following. Appreciate follow-up recommendations. Patient is currently on 81 mg aspirin. - Carotid ultrasound unremarkable. 2-D echo ordered. Possible sepsis: Patient is a known IV drug user. He was found down. He presented with leukocytosis, have since developed a fever. Abnormal urinalysis. Chest x-ray unremarkable - Obtain blood cultures. - Patient is allergic to vancomycin and penicillin. Start aztreonam and Flagyl. - Consult infectious disease for assistance with antibiotics. Probable drug overdose: Patient's toxicology was positive for cocaine, opiates, and benzodiazepines. Salicylate level slightly above normal. Patient was found down and he responded to Narcan given by EMS. Continue to monitor neuro status. Avoid sedating medications. Discontinue trazodone. Acute renal failure: Unknown baseline. Renal function slightly worse today. Likely related to dehydration and prerenal azotemia Give 1 L normal saline bolus. Increase IV fluid to 125 cc per hour. Follow up BMP in a.m. Place [facility] for accurate I/O Back pain: Acute on chronic. C-spine CT as above. -On baclofen -Heating pad History of anxiety/depression: Chronic. -Continue home Tegretol. DC trazodone to avoid oversedation. Xanax as needed. -Continue Wellbutrin DVT prophylaxis: Start Heparin. Discharge Planning Transferred to ICU. Patient is critically ill with a debilitating stroke, tachypneic, septic. Need closer monitoring. Bogdan Mckeon MD Nov 10, 2016 09:20
[2016-11-10] MEDS: D5-1/2 NS + KCL 10 MEQ INJ 1,000 ML IV SCH ×2 (11:16→17:27)
[2016-11-10] MEDS: AZTREONAM INJ 2,000 MG in SODIUM CHLORIDE 0.9% INJ 100 ML IV SCH ×2 (11:17→17:28)
[2016-11-10] MEDS: metroNIDAZOLE 500 MG INJ 100 ML IV SCH ×2 (11:22→17:26)
[2016-11-10] MEDS: HEPARIN SODIUM - SQ 10,000 UNITS/ML VIAL SQ SCH ×2 (11:23→23:01)
--- NOTE | 2016-11-10 16:01 | MB ---
cc: DARIN GUY MD DATE OF CONSULTATION: 11/10/2016 REQUESTING PHYSICIAN: Dr. Mckeon REASON FOR CONSULTATION: Probable sepsis. IVDU. ALLERGIES VANCO PENICILLIN HISTORY OF PRESENT ILLNESS This is a 61-year-old white male who was brought to the emergency department after he was found down. The patient reportedly was given Narcan for potential drug overdose. It is noted that the paramedics found his son giving him CPR when the arrived on the scene. The patient is currently somnolent but he awakens easily and this is eyes open for me and respond to questions but always answers "I do not know". Information is obtained from the medical record. The patient is noted to be an IV drug user. He denies use of IV drugs to me. He admits to being on methadone. The patient was having difficulty moving his legs. He also had difficulty moving the upper extremities. An MRI of the brain showed left cerebellar infarct. Blood cultures were taken and results are pending. Urinalysis revealed 45 white cells. Urine culture has less than 10,000 colonies of gram-positive justino. He the patient has fever with temperature of 103 degrees early this morning. His white blood cell count was 12.2 yesterday and today it is down to 8.7. Chest x-ray shows no acute cardiopulmonary disease. The patient states that he has pain in his back. He has had scan of the thoracic, cervical and lumbar spine. Lumbar spine shows grade I anterolisthesis at L4-L5. Severe facet hypertrophy. Diffuse disk bulges present with mild narrowing. Thoracic MRI shows degenerative disk disease at the cervical spine. The cervical MRI showed moderate multilevel canal stenosis secondary to the degenerative disk disease. PAST MEDICAL HISTORY: 1. Chronic pain with opiate abuse. 2. psychiatric illness. 3. History of anxiety, depression. The patient reportedly uses heroin daily. ALLERGIES VANCOMYCIN PENICILLIN MEDICATIONS 1. Aztreonam 2. Metronidazole. 3. Tegretol. 4. Baclofen. 5. Xanax. SOCIAL HISTORY: Positive tobacco use one pack a day, positive substance abuse in the form of heroin. No alcohol noted. FAMILY HISTORY Unable to obtain. REVIEW OF SYSTEMS Review of systems difficult to obtain because of the patient's responses. PHYSICAL EXAMINATION: IN GENERAL: This is a frail, appearing thin male who is in no acute distress. He is somnolent. VITAL SIGNS: Include temperature 101 degrees, heart rate 72. Blood pressure 137/83, respirations 20. HEAD, EYES, EARS, NOSE, AND THROAT: Head is atraumatic. The extraocular movements appear grossly intact. Pupils reactive to light. No icterus. Oropharynx, no visible lesions. NECK: The neck is supple without adenopathy. LUNGS: Decreased breath sounds. HEART: Regular rate and rhythm. No murmurs or rubs or gallops. ABDOMEN: Bowel sounds present, soft and flat, nontender. RECTUM: Not performed. EXTREMITIES: No clubbing or cyanosis or edema. SKIN: No rash. NEUROLOGIC: Unable to fully assess. The patient just barely closes the right hand. Otherwise no movement elicited at the extremities. PSYCHIATRIC: Psych unable to assess. LABORATORY DATA WBC 8.7, platelets 173, 92% neutrophils, hemoglobin 9.7, creatinine 2.29, BUN 65, estimated GFR 29, sodium 135. IMPRESSION 1. Fever questionable etiology. Probable sepsis. 2. Acute renal disease probably related to drug ingestion. 3. Probable drug toxicity. 4. Allergy to PENICILLIN AND VANCOMYCIN. 5. Cerebellar infarct. RECOMMENDATIONS 1. Continue aztreonam 2. Continue metronidazole. 3. Monitor blood cultures. 4. Monitor temperature. Thank you for this consultation. I will follow the patient's progress with you and make further recommendations upon followup if necessary. Darin Guy MD FD/sharri /2:19 PM /3:34 PM [facility] SYSTEMMerlin
--- NOTE | 2016-11-10 20:00 | HHI.PR ---
Subjective Remarks febrile still unable to move ue and le only slightly in rue/hand. verbal,not short of breath,no swallowing issues Objective Vital Signs Date Time Temp Pulse Resp B/P (MAP) Pulse Ox O2 Delivery O2 Flow Rate FiO2 11/10/16 18:00 72 11/10/16 16:00 70 11/10/16 16:00 98.5 71 18 137/88 (104) 94 11/10/16 14:00 73 11/10/16 12:00 72 11/10/16 12:00 100.5 69 18 120/72 (88) 94 11/10/16 12:00 75 11/10/16 11:00 100.5 73 18 117/67 (84) 94 11/10/16 09:21 101.0 11/10/16 08:15 21 11/10/16 08:00 88 11/10/16 07:26 103.0 91 18 121/73 (89) 94 11/10/16 04:10 84 11/10/16 03:48 100.6 82 21 121/69 (86) 95 11/10/16 00:15 69 11/09/16 22:59 98.4 68 20 98/56 (70) 95 11/09/16 20:41 21 11/09/16 20:37 98.6 60 22 103/62 (76) 95 11/09/16 20:15 62 I/O 11/09/16 11/09/16 11/09/16 11/10/16 11/10/16 11/10/16 06:59 14:59 22:59 06:59 14:59 22:59 Intake Total 1000 ml 1000 ml 1090 ml 2100 ml Output Total 2800 ml Balance 1000 ml 1000 ml 1090 ml 2100 ml -2800 ml Intake Oral 1000 ml 100 ml IV Total 1000 ml 990 ml 2100 ml Output Urine Total 2800 ml # Voids 3 Result Diagram: 11/10/1641411/10/16414 Imaging brain mri very small aka lacune in right cerebellum c spine mri w/o due to renal dz-?expansion in cord -see full report. 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 absent dtr's toes neutral no clonus no hoffmans no signs of myelopathy. Assessment and Plan Assessment and Plan diffuse weakness ue/le ?GBS/?cord infarct -needs LP in am-if abnl will need ivig 0.4g/kg/d x 5 days vs apheresis. abx for sepsis/fever defer tx to hospitalist. watch breathing if any change may need intubation. stroke is tiny and is not the cause of his severe weakness. unable to do an mri w/contrast due to his kidney function. scd'd no asa or ac until LP is completed. Angélica Campos MD Nov 10, 2016 19:59
[2016-11-10] MEDS ORDERED: CHLORHEXIDINE GLUCONATE 2 % 1 PACK (2 CLOTHS)(extra cloths) TOPICAL PRN (21:15)
[2016-11-11] VITALS (13 sets, daily range): BP systolic 164–185; BP diastolic 92–105; PULSE 59–70; RESP 20–31; TEMP 97.4–100.7; O2SAT 92–95
[2016-11-11] MEDS: D5-1/2 NS + KCL 10 MEQ INJ 1,000 ML IV SCH ×3 (02:31→20:47)
[2016-11-11] MEDS: AZTREONAM INJ 2,000 MG in SODIUM CHLORIDE 0.9% INJ 100 ML IV SCH ×2 (02:31→08:51)
[2016-11-11] MEDS: CHLORHEXIDINE GLUCONATE 2 % 1 PACK (2 CLOTHS)(taper/protocol) TOPICAL SCH (04:00)
[2016-11-11] MEDS: metroNIDAZOLE 500 MG INJ 100 ML IV SCH ×2 (05:53→08:51)
[2016-11-11] MEDS: BACLOFEN 10 MG TAB PO SCH (05:54)
[2016-11-11 06:51] LABS: HEMATOCRIT 29.2 % (39.0-51.0); MEAN CELL VOLUME 92.3 FL (80.0-100.0); MEAN CORPUSCULAR HEMOGLOBIN 30.8 PG (27.0-34.0); MEAN CORPUSCULAR HGB CONC 33.4 % (32.0-36.0); PLATELET COUNT 155 TH/MM3 (150-450); RED BLOOD COUNT 3.17 MIL/MM3 (4.50-5.90); RED CELL DISTRIBUTION WIDTH 13.2 % (11.6-17.2); REVIEW FLAG FINAL; WHITE BLOOD COUNT 10.1 TH/MM3 (4.0-11.0)
[2016-11-11 06:53] LABS: APTT (PATIENT) 56.2 SEC (24.3-30.1); INTERNATIONAL NORMALIZED RATIO 1.1 RATIO; PROTHROMBIN TIME - PATIENT 12.7 SEC (9.8-11.6)
[2016-11-11 07:17] LABS: BICARBONATE 22.5 MEQ/L (21.0-32.0); POTASSIUM 3.5 MEQ/L (3.5-5.1)
[2016-11-11] MEDS: HEPARIN SODIUM - SQ 10,000 UNITS/ML VIAL SQ SCH ×2 (08:40→20:48)
[2016-11-11] MEDS: carBAMazepine 200 MG TAB PO SCH ×4 (08:51→18:00)
[2016-11-11] MEDS: SODIUM CHLORIDE 0.9% FLUSH 5 ML FLUSH IV FLUSH SCH ×2 (08:52→20:47)
--- NOTE | 2016-11-11 10:58 | HHI.PR ---
Subjective Remarks Patient with persistent bilateral upper and lower extremity paralysis. Occasional twinge on the right arm. He can answer some simple questions such as his name and date of but he is otherwise confused. He denies shortness of breath. For LP today Blood cultures growing gram-positive cocci 4 out of 4 bottles. Objective Vitals Vital Signs Date Time Temp Pulse Resp B/P (MAP) Pulse Ox O2 Delivery O2 Flow Rate FiO2 11/11/16 10:00 95 11/11/16 08:00 97.4 66 20 173/96 (121) 95 11/11/16 06:00 64 11/11/16 04:00 64 11/11/16 04:00 99.2 63 23 170/95 (120) 94 11/11/16 02:00 64 11/11/16 00:00 64 11/11/16 00:00 99.2 63 24 170/95 (120) 94 11/10/16 22:00 72 11/10/16 20:00 99.2 72 24 154/94 (114) 96 11/10/16 20:00 72 11/10/16 19:36 94 21 11/10/16 18:00 72 11/10/16 16:00 70 11/10/16 16:00 98.5 71 18 137/88 (104) 94 11/10/16 14:00 73 11/10/16 12:00 72 11/10/16 12:00 100.5 69 18 120/72 (88) 94 11/10/16 12:00 75 11/10/16 11:00 100.5 73 18 117/67 (84) 94 I/O 11/10/16 11/10/16 11/10/16 11/11/16 11/11/16 11/11/16 07:00 15:00 23:00 07:00 15:00 23:00 Intake Total 2100 ml 640 ml 1025 ml Output Total 3550 ml 550 ml Balance 2100 ml -2910 ml 475 ml Intake Oral 200 ml IV Total 2100 ml 640 ml 825 ml Output Urine Total 3550 ml 550 ml Bladder Scan Volume Amount 0 ml 0 ml 0 ml # Voids 3 Result Diagram: 11/11/16 0606 11/11/16 0606 Imaging Last Impressions Thoracic Spine MRI 11/09/16 0000 Signed Impressions: Service Date/Time: Wednesday, November 09, 2016 16:18 - CONCLUSION: 1. There is degenerative disc disease of the cervical spine which is incompletely evaluated on this study. 2. The thoracic spine is normal for age with minimal degenerative changes and no canal or foraminal stenosis. Petey Oseguera MD Cervical Spine MRI 11/09/16 0000 Signed Impressions: Service Date/Time: Wednesday, November 09, 2016 16:18 - CONCLUSION: 1. Moderate multilevel canal stenosis secondary to degenerative disc disease. 2. There is associated mild impression on the cord and abnormal increased T2 signal within the spinal cord. It is difficult to exclude mild expansion of the cord on sagittal series. 3. There is mild prevertebral soft tissue swelling identified. Petey Oseguera MD Carotid Artery Ultrasound 11/09/16 0000 Signed Impressions: Service Date/Time: Wednesday, November 09, 2016 21:00 - CONCLUSION: 1. Negative for carotid stenosis or significant plaque formation. Vertebral artery flow antegrade bilaterally. Aldair Garcia MD Brain MRI 11/09/16 0000 Signed Impressions: Service Date/Time: Wednesday, November 09, 2016 16:18 - CONCLUSION: 1. Left cerebellar infarct, lacunar. Petey Oseguera MD Shoulder X-Ray 11/08/16 0000 Signed Impressions: Service Date/Time: Tuesday, November 08, 2016 18:32 - CONCLUSION: No acute left shoulder abnormality is identified on this two-view examination. There is osteoarthritis at the acromioclavicular joint. Jerry Ghotra MD Lumbar Spine MRI 11/08/16 0000 Signed Impressions: Service Date/Time: Tuesday, November 08, 2016 19:29 - CONCLUSION: 1. Grade 1 anterolisthesis at L4-L5 secondary to severe facet hypertrophy. Diffuse disc bulges present very mildly narrowing the spinal canal and there is mild neural foraminal narrowing bilaterally. 2. 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 3. Very large cystic structure within the pelvis presumably a very distended urinary bladder since it appears midline. Suggest correlation with the clinical examination. Jerry Ghotra MD Head CT 11/08/16 0000 Signed Impressions: Service Date/Time: Tuesday, November 08, 2016 18:39 - CONCLUSION: No acute intracranial abnormality is identified. Jerry Ghotra MD Chest X-Ray 11/08/16 0000 Signed Impressions: Service Date/Time: Tuesday, November 08, 2016 18:31 - CONCLUSION: No acute cardiopulmonary abnormality is identified. Jerry Ghotra MD Cervical Spine CT 11/08/16 0000 Signed Impressions: Service Date/Time: Tuesday, November 08, 2016 18:39 - CONCLUSION: 1. No acute cervical spine abnormality is identified. 2. Multilevel degenerative disc disease. Jerry Ghotra MD Objective Remarks GENERAL: Lethargic. Reports excruciating back pain with any movements. Cannot move any extremities. CARDIOVASCULAR: Normal rate and regular rhythm without murmurs, gallops, or rubs. RESPIRATORY: Tachypneic. Diminished breath sounds at the bases. Otherwise clear to auscultation bilaterally. GASTROINTESTINAL: Abdomen soft, non-tender, non-distended. Normal active bowel sounds MUSCULOSKELETAL: Extremities without cyanosis, or edema. NEURO: Alert to self only. Can answer some simple questions. Cannot move any extremities. PSYCH: At times appeared to be hallucinating. A/P Assessment and Plan 61-year-old male with a medical history significant for psychiatric illness, chronic pain, opiate abuse who was admitted with possible overdose and decreased lower extremity strength. Patient is found to have a lacunar stroke. He has bilateral upper and lower extremity paralysis. He is septic with gram- positive cocci bacteremia. CVA: - Neurology following and indicated the stroke is small and not the cause of his paralysis. Guillain-Burnett, cord infarcts being considered. - LP ordered. - Carotid ultrasound unremarkable. 2-D echo ordered. Sepsis with gram-positive cocci bacteremia: Patient is a known IV drug user. He was found down. He presented with leukocytosis, have since developed a fever. Abnormal urinalysis. Chest x-ray unremarkable - Appreciate infectious disease following, - Antibiotics switched to Ceftaroline. - Follow 2-D echocardiogram. Probable drug overdose: Patient's toxicology was positive for cocaine, opiates, and benzodiazepines. Salicylate level slightly above normal. Patient was found down and he responded to Narcan given by EMS. Continue to monitor neuro status. Avoid sedating medications. Discontinue trazodone. Acute renal failure: Likely prerenal azotemia. Much improved with IV fluid. Continue IV fluid Hodge for I/O Back pain: Acute on chronic. C-spine CT as above. -Heating pad History of anxiety/depression: Chronic. -Continue home Tegretol. DC trazodone to avoid oversedation. Xanax as needed. -Continue Wellbutrin DVT prophylaxis: Heparin. Discharge Planning Continue care in the ICU. At risk for respiratory failure and intubation if he does have an ascending type paralysis. Bogdan Mckeon MD Nov 11, 2016 10:58
--- NOTE | 2016-11-11 12:13 | HHI.IDPN ---
Note Infectious Disease Note Patient has head turned to right side. Awake. Not moving the extremities. Answering questions. Notes VANCE. No visual problems. No fever. BP elevated. Blood culture has gram positive cocci. 06/21. Patient denies IV drug use. LP planned today. Patient was brought to the emergency department after he was found down. The patient reportedly was given Narcan for potential drug overdose. It is noted that the paramedics found his son giving him CPR when they arrived on the scene. Complained of back pain. PAST MEDICAL HISTORY: 1. Chronic pain with opiate abuse. 2. psychiatric illness. 3. History of anxiety, depression. The patient reportedly uses heroin daily. ALLERGIES VANCOMYCIN PENICILLIN OBJECTIVE: Vital Signs Date Time Temp Pulse Resp B/P (MAP) Pulse Ox O2 Delivery O2 Flow Rate FiO2 11/11/16 10:00 95 11/11/16 08:00 97.4 66 20 173/96 (121) 95 11/11/16 06:00 64 11/11/16 04:00 64 11/11/16 04:00 99.2 63 23 170/95 (120) 94 11/11/16 02:00 64 11/11/16 00:00 64 11/11/16 00:00 99.2 63 24 170/95 (120) 94 11/10/16 22:00 72 11/10/16 20:00 99.2 72 24 154/94 (114) 96 11/10/16 20:00 72 11/10/16 19:36 94 21 11/10/16 18:00 72 11/10/16 16:00 70 11/10/16 16:00 98.5 71 18 137/88 (104) 94 11/10/16 14:00 73 11/11/16 11/11/16 11/12/16 15:00 23:00 07:00 Intake Total 1050 ml Balance 1050 ml IV Total 1050 ml Laboratory Tests Test 11/10/16 04:15 11/11/16 06:06 White Blood Count 8.7 TH/MM3 10.1 TH/MM3 Red Blood Count 3.14 MIL/MM3 3.17 MIL/MM3 Hemoglobin 9.7 GM/DL 9.8 GM/DL Hematocrit 29.0 % 29.2 % Mean Corpuscular Volume 92.2 FL 92.3 FL Mean Corpuscular Hemoglobin 30.7 PG 30.8 PG Mean Corpuscular Hemoglobin Concent 33.3 % 33.4 % Red Cell Distribution Width 13.4 % 13.2 % Platelet Count 173 TH/MM3 155 TH/MM3 Mean Platelet Volume 7.9 FL 8.0 FL Neutrophils (%) (Auto) 92.2 % Lymphocytes (%) (Auto) 2.5 % Monocytes (%) (Auto) 5.3 % Eosinophils (%) (Auto) 0.0 % Basophils (%) (Auto) 0.0 % Neutrophils # (Auto) 8.0 TH/MM3 Lymphocytes # (Auto) 0.2 TH/MM3 Monocytes # (Auto) 0.5 TH/MM3 Eosinophils # (Auto) 0.0 TH/MM3 Basophils # (Auto) 0.0 TH/MM3 CBC Comment AUTO DIFF Differential Total Cells Counted 100 Neutrophils % (Manual) 91 % Band Neutrophils % 5 % Lymphocytes % 4 % Neutrophils # (Manual) 8.4 TH/MM3 Differential Comment FINAL DIFF MANUAL Platelet Estimate NORMAL Platelet Morphology Comment NORMAL Red Cell Morphology Comment NORMAL Laboratory Tests Test 11/09/16 20:00 11/09/16 23:29 11/10/16 04:15 11/11/16 06:06 Hemoglobin A1c 5.7 % Troponin I LESS THAN 0.02 NG/ML LESS THAN 0.02 NG/ML LESS THAN 0.02 NG/ML Blood Urea Nitrogen 65 MG/DL 50 MG/DL Creatinine 2.29 MG/DL 1.09 MG/DL Random Glucose 95 MG/DL 133 MG/DL Total Protein 6.2 GM/DL Albumin 2.2 GM/DL Calcium Level 8.2 MG/DL 8.1 MG/DL Alkaline Phosphatase 87 U/L Aspartate Amino Transf (AST/SGOT) 61 U/L Alanine Aminotransferase (ALT/SGPT) 32 U/L Total Bilirubin 0.4 MG/DL Sodium Level 135 MEQ/L 138 MEQ/L Potassium Level 4.0 MEQ/L 3.5 MEQ/L Chloride Level 104 MEQ/L 108 MEQ/L Carbon Dioxide Level 21.9 MEQ/L 22.5 MEQ/L Anion Gap 9 MEQ/L 8 MEQ/L Estimat Glomerular Filtration Rate 29 ML/MIN 69 ML/MIN Triglycerides Level 95 MG/DL Cholesterol Level 91 MG/DL LDL Cholesterol 46 MG/DL HDL Cholesterol 25.8 MG/DL Cholesterol/HDL Ratio 3.52 RATIO Microbiology Date/Time Source Procedure Growth Status 11/10/16 13:35 Blood Peripheral Aerobic Blood Culture - Preliminary Gram Positive Cocci Resulted 11/10/16 13:35 Anaerobic Blood Culture - Preliminary Gram Positive Cocci Resulted 11/10/16 13:30 Blood Peripheral Aerobic Blood Culture - Preliminary Gram Positive Cocci Resulted 11/10/16 13:30 Anaerobic Blood Culture - Preliminary Gram Positive Cocci Resulted 11/09/16 17:30 Urine Clean Catch Urine Culture - Final <10,000 CFU/ML GRAM POSITIVE TOMASA Complete PHYSICAL EXAMINATION: IN GENERAL: No acute distress. He is awake. HEAD, EYES, EARS, NOSE, AND THROAT: Head is atraumatic. The extraocular movements appear grossly intact. Pupils reactive to light. No icterus. Oropharynx, no visible lesions. NECK: (+) nuccal rigidity. LUNGS: Decreased breath sounds. HEART: Regular rate and rhythm. No murmurs or rubs or gallops. ABDOMEN: Bowel sounds present, soft and flat, nontender. EXTREMITIES: No clubbing or cyanosis or edema. SKIN: No rash. NEUROLOGIC: No movement of arms or legs. PSYCHIATRIC: Psych unable to assess. IMPRESSION 1. Fever questionable etiology. bacteremia with gram positive cocci. 2. Cerebellar infarct. 3. Possible meningitis. 4 Acute renal disease probably related to drug ingestion vs sepsis. 5. Allergy to PENICILLIN AND VANCOMYCIN. 6. Paraplegia. ? cause. 5. Cervical infarct. RECOMMENDATIONS 1. Stop aztreonam 2. Stop metronidazole. 3. Monitor blood cultures. ID and sensitivity. 4. Start Ceftaroline. 5. Monitor CSF after LP. Dr Elias Roberts covering weekend. Raji Waters MD Nov 11, 2016 12:13
[2016-11-11] MEDS ORDERED: ENALAPRILAT 1.25 MG/ML VIAL IV PRN (13:00)
--- NOTE | 2016-11-11 14:12 | PD.RAD ---
Post Procedure Progress Note Pre Procedure Diagnosis: (1) Neurologic gait dysfunction Post Procedure Diagnosis: (1) Neurologic gait dysfunction Procedure Date: Nov 11, 2016 Supervising Radiologist: Yayo Barone JR Proceduralist/Assist: Mague Greenberg, RT(R), Emerita Aguilar RT(R)() Anesthesia: Local Plan of Activity Patient to Unit: Nursing Unit Patient Condition: Good See PACS Report for procedural detail/treatment Spinal Procedure Lumbar Puncture L3-L4 Fluid Description: Yellow Puncture Time: 13:50 Findings: Opening pressure.15 cm H2O Clear, yellow CSF Jr. Abisai,Yayo Rodriguez MD Nov 11, 2016 14:12
--- NOTE | 2016-11-11 14:31 | RADRPT ---
EXAM DATE/TIME: 11/11/2016 13:40 [place] COMPARISON: No previous studies available for comparison. INDICATIONS : Patient with history of extremity weakness and altered mental status in need of lumbar puncture. MEDICAL HISTORY : Heroin/opiate abuse, HTN, Hepatitis, Chronic pain, Psychiatric illness, Possible MD SURGICAL HISTORY : Denies past surgeries ENCOUNTER: Initial ACUITY: 4 - 6 days PAIN SCORE: 7/10 LOCATION: neck LUMBAR PUNCTURE TIME: 1350 hours FLUORO TIME: 0.7 minutes 0 ACCESS LEVEL: L3-4 OPENING PRESSURE: 15 cm of water CLOSING PRESSURE: Not requested. FLUID: 10 cc of clear, yellow CSF was collected and sent to the laboratory for analysis. PROCEDURE : 1. Fluoroscopic guided lumbar puncture. 2. Recording of opening pressure. The risks, benefits and alternatives to the procedure were explained and verbal and written consent w as obtained. The site was prepped in sterile fashion. Full sterile technique was used, including ca p, mask, sterile gloves and gown and a large sterile sheet. Hand hygiene and 2% chlorhexidine and/or betadine/alcohol prep was utilized per protocol for cutaneous antisepsis. The skin and subcutaneous tissues were infiltrated with local anesthetic solution. With fluoroscopic guidance the lumbar thecal sac was punctured at the above level described above and the opening pressure was recorded. The above described fluid was removed without difficulty. The patient tolerated the procedure well and there were no complications. CONCLUSION: Uncomplicated fluoroscopically guided lumbar puncture with pressures as above. Yayo Barone Jr., MD on November 11, 2016 at 14:29 Board Certified Radiologist. This report was verified electronically.
[2016-11-11] MEDS: CEFTAROLINE INJ 600 MG in SODIUM CHLORIDE 0.9% INJ 100 ML IV SCH (14:41)
[2016-11-11 15:19] LABS: LACTIC ACID,CSF 6.1 MMOL/L (0.0-3.0)
[2016-11-11 15:33] LABS: GROSS BLOOD TUBE #1 TRACE (0); GROSS BLOOD TUBE #2 0 (0); GROSS BLOOD TUBE #3 0 (0); SUPERNATE COLOR TUBE #1 XANTHOCHROMIC (CLEAR); SUPERNATE COLOR TUBE #2 XANTHOCHROMIC (CLEAR); SUPERNATE COLOR TUBE #3 XANTHOCHROMIC (CLEAR); SUPERNATE COLOR TUBE #4 XANTHOCHROMIC (CLEAR); VOLUME TUBE # 4 3.5 ML
[2016-11-11 15:58] LABS: CSF LYMPHOCYTES 6 %; CSF MONOCYTES 5 %; CSF NEUTROPHILS 89 %
[2016-11-11 16:18] LABS: WBC TUBE #4 494 /MM3 (0-10)
--- NOTE | 2016-11-11 17:17 | ECHRPT ---
Indication: cva/tia CONCLUSIONS The left ventricular systolic function is moderately reduced with an estimated ejection fraction in the range of 40-45%. Normal left ventricular size. Mild concentric left ventricular hypertrophy. Mild mitral valve regurgitation. Cannot rule out a bicuspid aortic valve or trileaflet valve with partially fused commissure. There is mild tricuspid valve regurgitation. The pulmonary valve is not well visualized. BP: / HR: Rhythm: MEASUREMENTS (Male / Female) Normal Values Technical Quality:Good 2D ECHO LV Diastolic Diameter PLAX 4.5 cm 4.2 - 5.9 / 3.9 - 5.3 cm LV Systolic Diameter PLAX 3.7 cm IVS Diastolic Thickness 1.1 cm 0.6 - 1.0 / 0.6 - 0.9 cm LVPW Diastolic Thickness 1.1 cm 0.6 - 1.0 / 0.6 - 0.9 cm LV Relative Wall Thickness 0.5 RV Internal Dim ED PLAX 2.6 cm M-MODE Aortic Root Diameter MM 3.5 cm LA Systolic Diameter MM 3.8 cm LA Ao Ratio MM 1.1 AV Cusp Separation MM 2.6 cm DOPPLER Mitral E Point Velocity 55.8 cm/s Mitral A Point Velocity 44.4 cm/s Mitral E to A Ratio 1.3 LV E' Lateral Velocity 11.4 cm/s Mitral E to LV E' Lateral Ratio 4.9 LV E' Septal Velocity 9.6 cm/s Mitral E to LV E' Septal Ratio 5.8 TR Peak Velocity 246.0 cm/s TR Peak Gradient 24.2 mmHg FINDINGS LEFT VENTRICLE The left ventricular systolic function is moderately reduced with an estimated ejection fraction in the range of 40-45%. Normal left ventricular size. Mild concentric left ventricular hypertrophy. RIGHT VENTRICLE Normal right ventricular size and systolic function. LEFT ATRIUM The left atrial size is normal. RIGHT ATRIUM The right atrial size is normal. ATRIAL SEPTUM Normal atrial septal thickness without atrial level shunting by limited color doppler interrogation. AORTA The aortic root and proximal ascending aorta are normal in size on limited imaging. MITRAL VALVE Structurally normal mitral valve. Mild mitral valve regurgitation. AORTIC VALVE Cannot rule out a bicuspid aortic valve or trileaflet valve with partially fused commissure. TRICUSPID VALVE Structurally normal tricuspid valve. There is mild tricuspid valve regurgitation. PULMONARY VALVE The pulmonary valve is not well visualized. VESSELS The inferior vena cava is normal in size. PERICARDIUM No pericardial effusion. OTHER FINDINGS cannot rule out ASD Devon Garcia-Darrius MD (Electronically Signed) Final Date:11 November 2016 17:16
[2016-11-11] MEDS: ACETAMINOPHEN 325 MG TAB PO PRN (20:48)
[2016-11-12] VITALS (19 sets, daily range): BP systolic 133–166; BP diastolic 83–91; PULSE 58–70; RESP 25–39; TEMP 98.8–99.8; O2SAT 93–97
[2016-11-12] MEDS: ALPRAZolam 1 MG TAB PO PRN ×3 (01:06→18:24)
[2016-11-12] MEDS: D5-1/2 NS + KCL 10 MEQ INJ 1,000 ML IV SCH ×4 (01:33→23:59)
[2016-11-12] MEDS: ACETAMINOPHEN 325 MG TAB PO PRN ×3 (01:34→20:17)
[2016-11-12] MEDS: CEFTAROLINE INJ 600 MG in SODIUM CHLORIDE 0.9% INJ 100 ML IV SCH ×2 (01:34→13:00)
[2016-11-12] MEDS: CHLORHEXIDINE GLUCONATE 2 % 1 PACK (2 CLOTHS)(taper/protocol) TOPICAL SCH (03:46)
[2016-11-12 04:39] LABS: MEAN CELL VOLUME 92.6 FL (80.0-100.0); MEAN CORPUSCULAR HEMOGLOBIN 31.6 PG (27.0-34.0); MEAN CORPUSCULAR HGB CONC 34.1 % (32.0-36.0); PLATELET COUNT 146 TH/MM3 (150-450); RED BLOOD COUNT 3.02 MIL/MM3 (4.50-5.90); RED CELL DISTRIBUTION WIDTH 13.1 % (11.6-17.2); REVIEW FLAG FINAL; WHITE BLOOD COUNT 10.3 TH/MM3 (4.0-11.0)
[2016-11-12 05:18] LABS: BICARBONATE 26.1 MEQ/L (21.0-32.0); INDIRECT BILIRUBIN 0.2 MG/DL (0.0-0.8); POTASSIUM 3.4 MEQ/L (3.5-5.1); TOTAL BILIRUBIN ADULT 0.4 MG/DL (0.2-1.0)
[2016-11-12] MEDS: SODIUM CHLORIDE 0.9% FLUSH 5 ML FLUSH IV FLUSH SCH ×2 (08:35→20:17)
[2016-11-12] MEDS: carBAMazepine 200 MG TAB PO SCH ×3 (08:36→17:35)
--- NOTE | 2016-11-12 09:40 | HHI.PR ---
Subjective Remarks Patient states "I am not doing well, I cannot move any of my extremities." He admits that he was using heroin and must have overdosed. Complaining of dry mouth and requesting anxiolytic medication. He wants to eat. He wants to talk to his son. He is concerned that he will be removed from the home. Objective Vitals Vital Signs Date Time Temp Pulse Resp B/P (MAP) Pulse Ox O2 Delivery O2 Flow Rate FiO2 11/12/16 07:52 97 Nasal Cannula 3.00 11/12/16 06:00 68 11/12/16 04:00 99.7 61 28 160/85 (110) 93 11/12/16 04:00 61 11/12/16 02:00 60 11/12/16 00:00 60 11/12/16 00:00 99.8 60 25 150/84 (106) 93 11/11/16 22:00 59 11/11/16 20:00 69 11/11/16 20:00 100.7 69 31 164/92 (116) 92 11/11/16 19:45 92 21 11/11/16 18:00 63 11/11/16 16:00 63 11/11/16 16:00 98.1 63 28 169/93 (118) 93 11/11/16 14:00 60 11/11/16 12:00 70 11/11/16 12:00 97.9 60 25 185/105 (131) 94 11/11/16 10:00 95 11/11/16 10:00 60 I/O 11/11/16 11/11/16 11/11/16 11/12/16 11/12/16 11/12/16 06:59 14:59 22:59 06:59 14:59 22:59 Intake Total 1025 ml 1150 ml 673 ml 1314 ml 345 ml Output Total 550 ml 775 ml 900 ml Balance 475 ml 1150 ml -102 ml 414 ml 345 ml Intake Oral 200 ml 0 ml IV Total 825 ml 1150 ml 673 ml 1314 ml 345 ml Output Urine Total 550 ml 775 ml 900 ml Bladder Scan Volume Amount 0 ml 0 ml # Bowel Movements 0 Result Diagram: 11/12/16 0326 11/12/16 0326 Objective Remarks GENERAL: Awake and alert. Cannot move any extremities. CARDIOVASCULAR: Normal rate and regular rhythm without murmurs, gallops, or rubs. RESPIRATORY: Diminished breath sounds at the bases. Otherwise clear to auscultation bilaterally. GASTROINTESTINAL: Abdomen soft, non-tender, non-distended. Normal active bowel sounds MUSCULOSKELETAL: Extremities without cyanosis, or edema. NEURO: Alert and oriented. Cannot move any extremities. PSYCH: Anxious A/P Assessment and Plan 61-year-old male with a medical history significant for psychiatric illness, chronic pain, opiate abuse who was admitted with overdose and decreased lower extremity strength. Patient is found to have a lacunar stroke. Patient now has bilateral upper and lower extremity paralysis. He is septic with gram- positive cocci bacteremia. CVA/Bilateral upper and lower extremity paralysis: - Neurology following and indicated the stroke is small and not the cause of his paralysis. Guillain-Burnett, cord infarcts being considered. - LP ordered. CSF is abnormal, xanthochromic, WBC high at 494, protein high at 597, glucose low at 11. Infectious and noninfectious etiology being considered. Patient is bacteremic. Onset of paralysis seem abrupt over 4-5 days. I discussed with Radiology. No structural lesion to explain the paralysis. He has age-related degenerative joint disease. Appreciate further input from Neurology if IVIG or steroids warranted at this point. - Carotid ultrasound unremarkable. 2-D echo ordered. - Swallow eval today. Sepsis with gram-positive cocci bacteremia: Patient is a known IV drug user. He was found down. He presented with leukocytosis, have since developed a fever. Abnormal urinalysis. Chest x-ray unremarkable - Appreciate infectious disease following, - Antibiotics switched to Ceftaroline. - Follow 2-D echocardiogram. Probable drug overdose: Patient's toxicology was positive for cocaine, opiates, and benzodiazepines. Salicylate level slightly above normal. Patient was found down and he responded to Narcan given by EMS. Neuro status improved. He is now on alert and oriented. Avoid sedating medications. Discontinue trazodone. Patient counseled on detrimental effects of illicit drugs. Acute renal failure: Likely prerenal azotemia. Resolved with IV fluid. Gentle IV fluid Hodge for I/O. Continue Hodge for now NECK/Back pain: Acute on chronic. Probably related to degenerative disease. -Heating pad History of anxiety/depression: Chronic. -Continue home Tegretol. DC trazodone to avoid oversedation. Ativan as needed. -Continue Wellbutrin DVT prophylaxis: Heparin. Discharge Planning Continue care in the ICU. At risk for respiratory failure and intubation if he does have an ascending type paralysis. Would consider transfer to floor tomorrow if remain stable. Bogdan Mckeon MD Nov 12, 2016 09:40
[2016-11-12] MEDS: HEPARIN SODIUM - SQ 10,000 UNITS/ML VIAL SQ SCH ×2 (10:27→21:05)
[2016-11-12] MEDS ORDERED: POTASSIUM CHLORIDE 10 MEQ CONTROLLED RELEASE TAB PO ONE (10:30)
--- NOTE | 2016-11-12 11:07 | HHI.IDPN ---
Subjective Subjective Remarks ID Xcover for . Chart reviewed. is a 61-year-old white male who was brought to the emergency department after he was found down. The patient reportedly was given Narcan for potential drug overdose. It is noted that the paramedics found his son giving him CPR when the arrived on the scene. Most information is obtained from the medical record. The patient is noted to be an IV drug user. He denies use of IV drugs to me. He admits to being on methadone. The patient was having difficulty moving his legs. He also had difficulty moving the upper extremities. An MRI of the brain showed left cerebellar infarct. Blood cultures were taken and results are pending. Urinalysis revealed 45 white cells. Urine culture has less than 10,000 colonies of gram-positive justino. He the patient has fever with temperature of 103 degrees early this morning. His white blood cell count was 12.2 yesterday and today it is down to 8.7. Chest x-ray shows no acute cardiopulmonary disease. The patient states that he has pain in his back. He has had scan of the thoracic, cervical and lumbar spine. Lumbar spine shows grade I anterolisthesis at L4-L5. Severe facet hypertrophy. Diffuse disk bulges present with mild narrowing. Thoracic MRI shows degenerative disk disease at the cervical spine. The cervical MRI showed moderate multilevel canal stenosis secondary to the degenerative disk disease. PAST MEDICAL HISTORY: 1. Chronic pain with opiate abuse. 2. psychiatric illness. 3. History of anxiety, depression. The patient reportedly uses heroin daily Overnight events reviewed. Low-grade fevers overnight. Not on pressors On room air and appears comfortable with no respiratory complaints. Tetraplegic from neck below MRI findings noted with cervical level muscle swelling possible epidural abscess. Urine output on the lower side,creatinine elevated No diarrhea No rash Antibiotics Teflaro IV Lines Line sites with no evidence of infection. Past Medical History Reviewed. Allergies: Coded Allergies: penicillin G (Unverified Allergy, Severe, SWELLING, 11/08/16) vancomycin (Unverified Allergy, Severe, BP ELEVATION, 11/08/16) Objective . Vital Signs Date Time Temp Pulse Resp B/P (MAP) Pulse Ox O2 Delivery O2 Flow Rate FiO2 11/12/16 07:52 97 Nasal Cannula 3.00 11/12/16 06:00 68 11/12/16 04:00 99.7 61 28 160/85 (110) 93 11/12/16 04:00 61 11/12/16 02:00 60 11/12/16 00:00 60 11/12/16 00:00 99.8 60 25 150/84 (106) 93 11/11/16 22:00 59 11/11/16 20:00 69 11/11/16 20:00 100.7 69 31 164/92 (116) 92 11/11/16 19:45 92 21 11/11/16 18:00 63 11/11/16 16:00 63 11/11/16 16:00 98.1 63 28 169/93 (118) 93 11/11/16 14:00 60 11/11/16 12:00 70 11/11/16 12:00 97.9 60 25 185/105 (131) 94 11/12/16 11/12/16 11/13/16 15:00 23:00 07:00 Intake Total 245 ml Balance 245 ml IV Total 245 ml . Laboratory Tests Test 11/11/16 06:06 11/12/16 03:26 White Blood Count 10.1 TH/MM3 10.3 TH/MM3 Red Blood Count 3.17 MIL/MM3 3.02 MIL/MM3 Hemoglobin 9.8 GM/DL 9.5 GM/DL Hematocrit 29.2 % 28.0 % Mean Corpuscular Volume 92.3 FL 92.6 FL Mean Corpuscular Hemoglobin 30.8 PG 31.6 PG Mean Corpuscular Hemoglobin Concent 33.4 % 34.1 % Red Cell Distribution Width 13.2 % 13.1 % Platelet Count 155 TH/MM3 146 TH/MM3 Mean Platelet Volume 8.0 FL 8.3 FL Laboratory Tests Test 11/11/16 06:06 11/12/16 03:26 Blood Urea Nitrogen 50 MG/DL 53 MG/DL Creatinine 1.09 MG/DL 0.82 MG/DL Random Glucose 133 MG/DL 118 MG/DL Calcium Level 8.1 MG/DL 8.0 MG/DL Sodium Level 138 MEQ/L 143 MEQ/L Potassium Level 3.5 MEQ/L 3.4 MEQ/L Chloride Level 108 MEQ/L 110 MEQ/L Carbon Dioxide Level 22.5 MEQ/L 26.1 MEQ/L Anion Gap 8 MEQ/L 7 MEQ/L Estimat Glomerular Filtration Rate 69 ML/MIN 96 ML/MIN Total Protein 5.5 GM/DL Albumin 1.6 GM/DL Alkaline Phosphatase 129 U/L Aspartate Amino Transf (AST/SGOT) 52 U/L Alanine Aminotransferase (ALT/SGPT) 35 U/L Total Bilirubin 0.4 MG/DL Direct Bilirubin 0.2 MG/DL Indirect Bilirubin 0.2 MG/DL Microbiology Date/Time Source Procedure Growth Status 11/10/16 13:35 Blood Peripheral Aerobic Blood Culture - Preliminary Staphylococcus Aureus Resulted 11/10/16 13:35 Anaerobic Blood Culture - Preliminary Staphylococcus Aureus Resulted 11/10/16 13:30 Blood Peripheral Aerobic Blood Culture - Preliminary Staphylococcus Aureus Resulted 11/10/16 13:30 Anaerobic Blood Culture - Preliminary Staphylococcus Aureus Resulted 11/11/16 13:50 Cerebral Spinal Fluid Lumbar Puncture Acid Fast Stain Pending Received 11/11/16 13:50 Cerebral Spinal Fluid Lumbar Puncture Mycobacterial Culture Pending Received 11/11/16 13:50 Cerebral Spinal Fluid Lumbar Puncture Gram Stain - Final Resulted 11/11/16 13:50 Cerebral Spinal Fluid Lumbar Puncture CSF Culture - Preliminary NO GROWTH IN 24 HOURS. Resulted 11/09/16 17:30 Urine Clean Catch Urine Culture - Final <10,000 CFU/ML GRAM POSITIVE JUSTINO Complete Imaging Last Impressions Lumbar Puncture Fluoroscopy 11/11/16 0000 Signed Impressions: Service Date/Time: Friday, November 11, 2016 13:40 - CONCLUSION: Uncomplicated fluoroscopically guided lumbar puncture with pressures as above. Yayo Barone Jr., MD Thoracic Spine MRI 11/09/16 0000 Signed Impressions: Service Date/Time: Wednesday, November 09, 2016 16:18 - CONCLUSION: 1. There is degenerative disc disease of the cervical spine which is incompletely evaluated on this study. 2. The thoracic spine is normal for age with minimal degenerative changes and no canal or foraminal stenosis. Petey Oseguera MD Cervical Spine MRI 11/09/16 0000 Signed Impressions: Service Date/Time: Wednesday, November 09, 2016 16:18 - CONCLUSION: 1. Moderate multilevel canal stenosis secondary to degenerative disc disease. 2. There is associated mild impression on the cord and abnormal increased T2 signal within the spinal cord. It is difficult to exclude mild expansion of the cord on sagittal series. 3. There is mild prevertebral soft tissue swelling identified. Petey Oseguera MD Carotid Artery Ultrasound 11/09/16 0000 Signed Impressions: Service Date/Time: Wednesday, November 09, 2016 21:00 - CONCLUSION: 1. Negative for carotid stenosis or significant plaque formation. Vertebral artery flow antegrade bilaterally. Aldair Garcia MD Brain MRI 11/09/16 Signed Impressions: Service Date/Time: Wednesday, November 09, 2016 16:18 - CONCLUSION: 1. Left cerebellar infarct, lacunar. Petey Oseguera MD Shoulder X-Ray 11/08/16 Signed Impressions: Service Date/Time: Tuesday, November 08, 2016 18:32 - CONCLUSION: No acute left shoulder abnormality is identified on this two-view examination. There is osteoarthritis at the acromioclavicular joint. Jerry Ghotra MD Lumbar Spine MRI 11/08/16 Signed Impressions: Service Date/Time: Tuesday, November 08, 2016 19:29 - CONCLUSION: 1. Grade 1 anterolisthesis at L4-L5 secondary to severe facet hypertrophy. Diffuse disc bulges present very mildly narrowing the spinal canal and there is mild neural foraminal narrowing bilaterally. 2. 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 3. Very large cystic structure within the pelvis presumably a very distended urinary bladder since it appears midline. Suggest correlation with the clinical examination. Jerry Ghotra MD Head CT 11/08/16 Signed Impressions: Service Date/Time: Tuesday, November 08, 2016 18:39 - CONCLUSION: No acute intracranial abnormality is identified. Jerry Ghotra MD Chest X-Ray 11/08/16 Signed Impressions: Service Date/Time: Tuesday, November 08, 2016 18:31 - CONCLUSION: No acute cardiopulmonary abnormality is identified. Jerry Ghotra MD Cervical Spine CT 11/08/16 Signed Impressions: Service Date/Time: Tuesday, November 08, 2016 18:39 - CONCLUSION: 1. No acute cervical spine abnormality is identified. 2. Multilevel degenerative disc disease. Jerry Ghotra MD Physical Exam PHYSICAL EXAMINATION: IN GENERAL: No acute distress. He is awake. HEAD, EYES, EARS, NOSE, AND THROAT: Head is atraumatic. The extraocular movements appear grossly intact. Pupils reactive to light. No icterus. Oropharynx, no visible lesions. NECK: (+) nuccal rigidity. LUNGS: Decreased breath sounds. HEART: Regular rate and rhythm. No murmurs or rubs or gallops. ABDOMEN: Bowel sounds present, soft and flat, nontender. EXTREMITIES: No clubbing or cyanosis or edema. SKIN: No rash. NEUROLOGIC: No movement of arms or legs. PSYCHIATRIC: Psych unable to assess. Assessment & Plan Remarks Severe Sepsis present on admission (MODS: Acute renal failure, encephalopathy) Gram positive bacteremia. Probable endocarditis. 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 Acute Cerebellar infarct: ? septic emboli related. Could turn into an abscess. Acute bacterial meningitis. Acute renal disease probably related to drug ingestion vs sepsis. Allergy to PENICILLIN AND VANCOMYCIN. History of hepatitis B as reported by patient Acute metabolic encephalopathy: Meningitis, sepsis. Intravenous drug abuse RECOMMENDATIONS Continue Teflaro/Ceftaroline IV (ASP: Vanco and PCN allergy). Patient refuses to be desensitized today and would like to have family involved in decision making. Cannot give Gentamicin due to renal failure. If he has tolerated Teflaro he should tolerate Ancef. Patient is encephalopathic I am not sure he understands this and does not want desensitization to PCN or challenge to Ancef which are both drugs of choice for him. Repeat Bld CX x 2. Check Hepatitis profile Check HIV antibody screen Follow cultures Follow clinically. Consult Neurosurgery(ongoing paralysis) Consult Cardiology for IVY with bubble study (? septal defects as cause for LENS POLISHER disease). michael Boyer RN and . Addendum: Patient mentioned to me upon questioning if clinical deterioration his Mom would make medical decisions as his son is not capable of making decisions as he is a special needs person. Mallory Roberts MD Nov 12, 2016 11:07
[2016-11-12] MEDS: LORazepam 0.5 MG TAB PO PRN ×2 (13:12→20:17)
--- NOTE | 2016-11-12 15:10 | PD.CONS ---
[facility] Service neurosurgery Consult Requested By Dr roberts Reason for Consult Possible spinal cord infection Primary Care Physician Unknown History of Present Illness is a 61-year-old white male who was brought to the emergency department after he was found unresponsive. He reportedly was given Narcan for potential drug overdose. The paramedics found his son giving him active CPR when they arrived. No seizure activity reported. No tongue biting. No incontinence of stool or urine . The patient is apparently known to be an IV drug user, he reports use of IV drugs in the form of heroin. He admits to being on methadone. He reports having difficulty moving his legs. He also is unable to move his upper extremities. has no rectal control or sensation. 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 Blood cultures were taken and results are pending. Urinalysis showed gram-positive justino. He the patient has fever with temperature of 103 degrees. His white blood cell count was elevated to 12.2 . Chest x-ray shows no acute cardiopulmonary disease. The patient states that he has pain in his back. He has had scan of the thoracic, cervical and lumbar spine. Lumbar spine shows grade I anterolisthesis at L4-L5. Severe facet hypertrophy. Diffuse disk bulges present with mild narrowing. Thoracic MRI shows degenerative disk disease. The cervical MRI showed moderate multilevel canal stenosis secondary to the degenerative disk disease.No discitis or epidural abscess seen in hi9s study, with a suspected expansion of the cprd and abnormal signal. He underwent an LP for memingitis. He did not have an MRI with contrast because he was in renal failure, and the medical doctor contraindicated it. Neurosurgical consultation was requested Review of Systems Constitutional: COMPLAINS OF: Diaphoretic episodes, Fatigue, Fever, Weight loss , Chills, Change in appetite, Night Sweats Endocrine: COMPLAINS OF: Heat/cold intolerance, DENIES: Polydipsia, Polyuria, Polyphagia Eyes: DENIES: Blurred vision, Diplopia, Eye inflammation, Eye pain, Vision loss , Photosensitivity, Double Vision Ears, nose, mouth, throat: DENIES: Tinnitus, Hearing loss, Vertigo, Nasal discharge, Oral lesions, Throat pain, Hoarseness, Ear Pain, Running Nose, Epistaxis, Sinus Pain, Toothache, Odynophagia Respiratory: DENIES: Apneas, Cough, Snoring, Wheezing, Hemoptysis, Sputum production, Shortness of breath Cardiovascular: DENIES: Chest pain, Palpitations, Syncope, Dyspnea on Exertion , PND, Lower Extremity Edema, Orthopnea, Claudication Gastrointestinal: DENIES: Abdominal pain, Black stools, Bloody stools, Constipation, Diarrhea, Nausea, Vomiting, Difficulty Swallowing, Anorexia Genitourinary: COMPLAINS OF: Urinary incontinence, DENIES: Sexual dysfunction, Urinary frequency, Urgency, Hematuria, Dysuria, Nocturia, Penile Discharge, Testicular Pain, Testicular Swelling Musculoskeletal: DENIES: Joint pain, Muscle aches, Stiffness, Joint Swelling, Back pain, Neck pain Integumentary: DENIES: Abnormal pigmentation, Nail changes, Pruritus, Rash Hematologic/lymphatic: DENIES: Bruising, Lymphadenopathy Immunologic/allergic: DENIES: Eczema, Urticaria Neurologic: COMPLAINS OF: Abnormal gait, Localized weakness, Paresthesias, Speech Problems, DENIES: Headache, Seizures, Tremor, Poor Balance Psychiatric: COMPLAINS OF: Anxiety, Depression, DENIES: Confusion, Mood changes , Hallucinations, Agitation, Suicidal Ideation, Homicidal Ideation, Delusions Past Family Social History Allergies: Coded Allergies: penicillin G (Unverified Allergy, Severe, SWELLING, 11/08/16) vancomycin (Unverified Allergy, Severe, BP ELEVATION, 11/08/16) Past Medical History 1. Chronic pain with opiate abuse. 2. psychiatric illness. 3. History of anxiety, depression. The patient reportedly uses heroin daily Past Surgical History Denies any past surgeries Does have a history of left wrist and ankle fracture Reported Medications Xanax (Alprazolam) 1 Mg Tab PO TID PRN [Wellbutrin] 200 Mg PO TID Tegretol (Carbamazepine) 200 Mg Tab 200 Mg PO TID Trazodone (Trazodone HCl) 300 Mg Tab 200 Mg PO TID Active Ordered Medications Current Medications Sodium Chloride 1,000 ml @ 999 mls/hr BOLUS ONCE IV Last administered on 11/08t 18:23; Start 11/08/16 at 18:30; Stop 11/08/16 at 19:30; Status DC Sodium Chloride (NS Flush) 2 ml UNSCH PRN IV FLUSH FLUSH AFTER USING IV ACCESS ; Start 11/08/16 at 21:45; Stop 11/10/16 at 10:01; Status DC Sodium Chloride (NS Flush) 2 ml BID IV FLUSH Last administered on 11/10/16 09: 19; Start 11/09/16 at 09:00; Stop 11/10/16 at 10:01; Status DC Naloxone HCl (Narcan Inj) 0.4 mg UNSCH PRN IV SEE LABEL COMMENTS; Start at 21:45 Pneumococcal Polyvalent Vaccine (Pneumovax-23 Inj) 25 mcg ONCE ONCE IM Last administered on 11/09/16 08:18; Start 11/09/16 at 09:00; Stop 11/09/16 at 09:01 ; Status DC Sodium Chloride 1,000 ml @ 84 mls/hr [id number] IV Last administered on 22:50; Start 11/09/16 at 08:00; Stop 11/10/16 at 09:20; Status DC Carbamazepine (TEGretol) 200 mg TID PO Last administered on 11/12/16 13:00; Start 11/09/16 at 14:00 Trazodone HCl (Desyrel) 200 mg TID PO Last administered on 11/09/16 18:32; Start 11/09/16 at 14:00; Stop 11/10/16 at 09:20; Status DC Alprazolam (Xanax) 1 mg Q8H PRN PO ANXIETY Last administered on 11/12/16 10:33 ; Start 11/09/16 at 13:00 Baclofen (Lioresal) 10 mg Q8HR PO Last administered on 11/11/16 05:54; Start 11/09/16 at 14:00; Stop 11/11/16 at 08:27; Status DC Acetaminophen (Tylenol) 650 mg Q4H PRN PO PAIN SCALE 1 TO 4, VANCE, Fever Last administered on 11/12/16 05:55; Start 11/09/16 at 13:15 IV Flush (NS Flush) 2 ml BID IV FLUSH Last administered on 11/12/16 08:35; Start 11/09/16 at 21:00 IV Flush (NS Flush) 2 ml UNSCH PRN IV FLUSH FLUSH AFTER USING IV ACCESS; Start 11/09/16 at 18:00 Aspirin (Aspirin Chew) 81 mg DAILY PO Last administered on 11/10/16 09:19; Start 11/09/16 at 18:00; Stop 11/10/16 at 20:00; Status DC Insulin Aspart (NovoLOG SUPPLEMENTAL SCALE) 1 ACHS SQ ; Start 11/09/16 at 21:00 ; Stop 11/10/16 at 07:22; Status DC Dextrose (D50w (Vial) Inj) 50 ml UNSCH PRN IV PUSH HYPOGLYCEMIA-SEE COMMENTS; Start 11/09/16 at 18:00; Stop 11/10/16 at 07:22; Status DC Glucagon (Glucagon Inj) 1 mg UNSCH PRN OTHER HYPOGLYCEMIA-SEE COMMENTS; Start 11/09/16 at 18:00; Stop 11/10/16 at 07:22; Status DC Ciprofloxacin/ Dextrose 100 ml @ 100 mls/hr Q12H IV ; Start 11/10/16 at 09:00; Stop 11/10/16 at 09:13; Status DC Aztreonam 2000 mg/ Sodium Chloride 100 ml @ 200 mls/hr Q8H IV Last administered on 11/11/16 08:51; Start 11/10/16 at 10:00; Stop 11/11/16 at 11:59 ; Status DC Metronidazole 100 ml @ 100 mls/hr Q8H IV Last administered on 11/11/16 08:51 ; Start 11/10/16 at 11:00; Stop 11/11/16 at 11:58; Status DC Sodium Chloride 1,000 ml @ 999 mls/hr BOLUS ONCE IV Last administered on 11/10 09:52; Start 11/10/16 at 09:15; Stop 11/10/16 at 10:15; Status DC Potassium Chloride/Dextrose/ Sod Cl 1,000 ml @ 100 mls/hr Q10H IV Last administered on 11/12/16 13:00; Start 11/10/16 at 10:00 Heparin Sodium (Porcine) (Heparin Inj) 5,000 units Q12H SQ Last administered on 11/12/16 10:27; Start 11/10/16 at 10:00 Miscellaneous Information Patient in critical care unit? Ass... [id number] .[id number] ; Start 11/10/16 at 21:15 Chlorhexidine Gluconate (Chlorhexidine 2% Cloth) 3 pack DAILY@04 TOPICAL Last administered on 11/12/16 03:46; Start 11/11/16 at 04:00; Stop 11/15/16 at 04:01 Chlorhexidine Gluconate (Chlorhexidine 2% Cloth) 3 pack UNSCH PRN TOPICAL HYGIENIC CARE; Start 11/10/16 at 21:15; Stop 11/15/16 at 21:12 Ceftaroline Fosamil 600 mg/ Sodium Chloride 100 ml @ 100 mls/hr Q12H IV Last administered on 11/12/16 13:00; Start 11/11/16 at 14:00 Enalaprilat (Vasotec Inj) 1.25 mg Q6H PRN IV SBP> OR = 180, DBP> OR = 100; Start 11/11/16 at 13:00 Lorazepam (Ativan) 0.5 mg Q6H PRN PO ANXIETY Last administered on 11/12/16 13: 12; Start 11/12/16 at 09:45 Potassium Chloride (KCl) 30 meq ONCE ONCE PO Last administered on 11/12/16 10 :34; Start 11/12/16 at 10:30; Stop 11/12/16 at 10:31; Status DC Family History His family history was reviewed, Reports father is getting Parkinson's Otherwise was noncontributory to his present condition Social History IV heroin use Smokes one pack per day Denies any alcohol use Physical Exam Vital Signs Vital Signs Date Time Temp Pulse Resp B/P (MAP) Pulse Ox O2 Delivery O2 Flow Rate FiO2 11/12/16 14:00 63 29 153/87 (109) 97 11/12/16 14:00 63 11/12/16 13:00 66 33 145/87 (106) 94 11/12/16 12:00 65 11/12/16 12:00 99.0 65 28 138/83 (101) 95 11/12/16 11:00 64 32 157/91 (113) 95 11/12/16 10:00 62 28 166/91 (116) 94 11/12/16 10:00 62 11/12/16 09:00 58 28 151/85 (107) 94 11/12/16 08:00 98.8 60 26 145/83 (103) 96 11/12/16 08:00 60 11/12/16 07:52 97 Nasal Cannula 3.00 11/12/16 07:00 62 26 157/84 (108) 96 11/12/16 06:00 68 11/12/16 04:00 99.7 61 28 160/85 (110) 93 11/12/16 04:00 61 11/12/16 02:00 60 11/12/16 00:00 60 11/12/16 00:00 99.8 60 25 150/84 (106) 93 11/11/16 22:00 59 11/11/16 20:00 69 11/11/16 20:00 100.7 69 31 164/92 (116) 92 11/11/16 19:45 92 21 11/11/16 18:00 63 11/11/16 16:00 63 11/11/16 16:00 98.1 63 28 169/93 (118) 93 Physical Exam he is alert, awake and oriented to time, place and person. Speech is fluent. Higher cognitive functions appear normal. Cranial nerve examination demonstrates the pupils to be equal, round, and reactive to light. Extra-ocular movements are intact. Facial motor and sensory function are normal and symmetrical. Gross hearing is intact, bilaterally. The uvula is midline and elevates symmetrically with the soft palate. Sternocleidomastoid and trapezius muscles have normal and symmetrical strength. Other cranial nerves are intact. 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 In the lower extremities, strength is 0/5 in both iliopsoas, quadriceps, hamstrings, plantar flexion, dorsiflexion, and extensor hallicus longus. Sensory examination is absent to light touch, pin prick, sharp/dull or temperature discrimination below his clavicles Deep tendon reflexes are trace in the biceps, triceps, and brachioradialis, bilaterally, in the upper extremities. In the lower extremities, the patellar and Achilles are 0+, bilaterally. There is a bilateral silent response to plantar stimulation. There is no clonus Cerebellar examination is nor possible due to his neurologial condition Laboratory Laboratory Tests Test 8/26/17 03:26 11/12/16 12:05 White Blood Count 10.3 Red Blood Count 3.02 Hemoglobin 9.5 Hematocrit 28.0 Mean Corpuscular Volume 92.6 Mean Corpuscular Hemoglobin 31.6 Mean Corpuscular Hemoglobin Concent 34.1 Red Cell Distribution Width 13.1 Platelet Count 146 Mean Platelet Volume 8.3 Blood Urea Nitrogen 53 Creatinine 0.82 Random Glucose 118 Total Protein 5.5 Albumin 1.6 Calcium Level 8.0 Alkaline Phosphatase 129 Aspartate Amino Transf (AST/SGOT) 52 Alanine Aminotransferase (ALT/SGPT) 35 Total Bilirubin 0.4 Direct Bilirubin 0.2 Sodium Level 143 Potassium Level 3.4 Chloride Level 110 Carbon Dioxide Level 26.1 Anion Gap 7 Estimat Glomerular Filtration Rate 96 Indirect Bilirubin 0.2 C-Reactive Protein 22.00 Date/Time Source Procedure Growth Status 11/10/16 13:35 Blood Peripheral Aerobic Blood Culture - Preliminary Staphylococcus Aureus Resulted 11/10/16 13:35 Anaerobic Blood Culture - Preliminary Staphylococcus Aureus Resulted 11/11/16 13:50 Cerebral Spinal Fluid Lumbar Puncture Acid Fast Stain Pending Received 11/11/16 13:50 Cerebral Spinal Fluid Lumbar Puncture Mycobacterial Culture Pending Received 11/09/16 17:30 Urine Clean Catch Urine Culture - Final <10,000 CFU/ML GRAM POSITIVE JUSTINO Complete Result Diagram: 11/12/16 0326 11/12/16 0326 Imaging Last Impressions Lumbar Puncture Fluoroscopy 11/11/16 0000 Signed Impressions: Service Date/Time: Friday, November 11, 2016 13:40 - CONCLUSION: Uncomplicated fluoroscopically guided lumbar puncture with pressures as above. Yayo Barone Jr., MD Thoracic Spine MRI 11/09/16 0000 Signed Impressions: Service Date/Time: Wednesday, November 09, 2016 16:18 - CONCLUSION: 1. There is degenerative disc disease of the cervical spine which is incompletely evaluated on this study. 2. The thoracic spine is normal for age with minimal degenerative changes and no canal or foraminal stenosis. Petey Oseguera MD Cervical Spine MRI 11/09/16 0000 Signed Impressions: Service Date/Time: Wednesday, November 09, 2016 16:18 - CONCLUSION: 1. Moderate multilevel canal stenosis secondary to degenerative disc disease. 2. There is associated mild impression on the cord and abnormal increased T2 signal within the spinal cord. It is difficult to exclude mild expansion of the cord on sagittal series. 3. There is mild prevertebral soft tissue swelling identified. Petey Oseguera MD Carotid Artery Ultrasound 11/09/16 Signed Impressions: Service Date/Time: Wednesday, November 09, 2016 21:00 - CONCLUSION: 1. Negative for carotid stenosis or significant plaque formation. Vertebral artery flow antegrade bilaterally. Aldair Garcia MD Brain MRI 11/09/16 Signed Impressions: Service Date/Time: Wednesday, November 09, 2016 16:18 - CONCLUSION: 1. Left cerebellar infarct, lacunar. Petey Oseguera MD Shoulder X-Ray 11/08/16 Signed Impressions: Service Date/Time: Tuesday, November 08, 2016 18:32 - CONCLUSION: No acute left shoulder abnormality is identified on this two-view examination. There is osteoarthritis at the acromioclavicular joint. Jerry Ghotra MD Lumbar Spine MRI 11/08/16 Signed Impressions: Service Date/Time: Tuesday, November 08, 2016 19:29 - CONCLUSION: 1. Grade 1 anterolisthesis at L4-L5 secondary to severe facet hypertrophy. Diffuse disc bulges present very mildly narrowing the spinal canal and there is mild neural foraminal narrowing bilaterally. 2. 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 3. Very large cystic structure within the pelvis presumably a very distended urinary bladder since it appears midline. Suggest correlation with the clinical examination. Jerry Ghotra MD Head CT 11/08/16 Signed Impressions: Service Date/Time: Tuesday, November 08, 2016 18:39 - CONCLUSION: No acute intracranial abnormality is identified. Jerry Ghotra MD Chest X-Ray 11/08/16 0000 Signed Impressions: Service Date/Time: Tuesday, November 08, 2016 18:31 - CONCLUSION: No acute cardiopulmonary abnormality is identified. Jerry Ghotra MD Cervical Spine CT 11/08/16 0000 Signed Impressions: Service Date/Time: Tuesday, November 08, 2016 18:39 - CONCLUSION: 1. No acute cervical spine abnormality is identified. 2. Multilevel degenerative disc disease. Jerry Ghotra MD Assessment and Plan Assessment and Plan Severe Sepsis present on admission (MODS: Acute renal failure, encephalopathy) Gram positive bacteremia. Probable endocarditis. Cerebellar infarct. Acute bacterial meningitis. Acute renal disease probably related to drug ingestion vs sepsis. History of hepatitis B as reported by patient Acute metabolic encephalopathy: Meningitis, sepsis. Intravenous drug abuse Attending Statement Neuro checks in a serial fashion. This patient has not been properly workup. Based on the available radiological studies, there is no indication for surgery. I recommend an MRI of the spine with IV contrast as soon as medically possible. The patient needs to be cleared by nephrology. Recommend stat nephrology consult and, if necessary dialysis following the MRI. There is suspected expansion of the cervical spinal cord, which could represent multiple conditions, including abcess,myelitis or a neoplastic process. I can not just not offer exploratory surgery without visualization of the pathology. Sepsis. Continue Teflaro/Ceftaroline IV. The patient was encephalopathic due to sepsis, but his mental status has improved. Repeat Bld CX x 2. Hepatisis. Check Hepatitis profile. Check HIV antibody screen Meningitis. Status post LP. Follow up cultures IV ABX This patient is in a truly critical condition. With a complete neurological deficits lasting longer than 24 hrs, he is very unlikely to recover any neurological function He is at high surgical risk Pulmonary. Aggressive pulmonary toilette, nasotracheal suction, and breathing treatments with nebulizers. PT and OT evaluation Probable endocarditis. 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 Will need further evaluation with a CTA or MRA Nutrition. Oral diet Renal. Consult nephrology for clearance for MRI with cobntrast and CTA brain. Monitor closely urine output, BUN and creatinine Endocrine. Monitor serial Acu checks and SSI as needed in detail ID IV ABX Protonix for stress ulcer prophylaxis Teja manzanares and SCD's for DVT prophylaxis Discussed with dr Roberts, placed a call to Dr Griffith as well. The patient has expressed desire for no further invassive treatment, paliative care with comfort measures. Please consult paliative care Wicho Suarez MD Nov 12, 2016 15:10
--- NOTE | 2016-11-12 20:59 | MB ---
cc: CONSTANZA DOLAN M.D. DATE OF CONSULTATION 11/12/16 HISTORY OF PRESENT ILLNESS Ronald is a 61-year-old IV drug abuser admitted with bacteremia, hemiparesis and being followed by ID who has requested a IVY. The patient is being followed by neurology and neurosurgery as well. His hemiparesis has now extended to bilateral paresis below the neck. Apparently, has also had a small stroke according to neurology. The patient also admits to some chest pain and shortness of breath. He also has difficulty swallowing pills. He otherwise denies any GI or bleeding. PAST MEDICAL HISTORY Includes anxiety, depression, chronic pain, opiate abuse and dependence. Left wrist and ankle fracture. MEDICATIONS PRIOR TO ADMISSION 1. Xanax. 2. Tegretol. 3. Trazodone. ALLERGIES PENICILLIN G, VANCOMYCIN. MEDICATIONS In the hospital 1. Ceftaroline IV. 2. Potassium supplementation. 3. Heparin 5000 subcu q. 12 hours. PHYSICAL EXAMINATION VITAL SIGNS: Blood pressure 153/87, pulse 632 respiratory 29, ranging between 28 and 33, pulse 63, temperature 99.0. GENERAL: He is alert and oriented times three. No acute distress. NECK: Supple. No JVD or bruit. CARDIOVASCULAR: S1-S2. No murmurs, rubs or gallops. LUNGS: Clear to auscultation bilaterally. ABDOMEN: Soft, nontender, nondistended with positive bowel sounds. EXTREMITIES: No clubbing, cyanosis or edema. The patient is paralyzed from the neck down per him and the nurse who is at the bedside. LABORATORY DATA His labs white count 10.3, hemoglobin 9.5, hematocrit 28.0, platelet count 146, sodium 143, potassium 3.4, chloride 110, BUN 53, creatinine 0.82. Troponin is less 0.02 x2. AST 52, ALT 35. C-reactive protein 22.0, albumin 1.6, LDL is 46, INR 1.1. Urine toxicology positive for benzodiazepines, cocaine and opiates. Also, salicylates were elevated at 23.5. IMAGING STUDIES Lumbar puncture fluoroscopy uncomplicated. Opening pressure 15 cm of water. Brain MRI left cerebellar infarct lacunar. Carotid ultrasound negative for carotid stenosis or significant plaque formation. Vertebral artery flow antegrade bilaterally. Cervical spine MRI moderate multilevel canal stenosis secondary to degenerative disc disease, associated mild depression on the cord and abnormal increased T2 signal within the spinal cord. Difficult to exclude mild expansion of the cord on saggital series. Mild prevertebral soft tissue swelling identified. Thoracic spine MRI degenerative disc disease at the cervical spine which is incompletely evaluated on the study. Thoracic spine is normal for age with minimal degenerative changes and no canal or foraminal stenosis. Cervical spine CT no acute cervical spine abnormalities identified. Multilevel degenerative disc disease. Chest x-ray no acute cardiopulmonary abnormality is identified. Head CT no acute intracranial abnormalities identified. Lumbar spine MRI grade 1 anterolisthesis at L4-5 secondary to severe facet hypertrophy. Diffuse disc bulges present very mildly narrowing the spinal canal. There is mild neural foraminal narrowing bilaterally. 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 CARDIOLOGY STUDIES Echocardiogram done 11/11/2016, EF 40-45%, mild LVH, mild MR. Cannot rule out bicuspid aortic valve. Can not rule out ASD. MICROBIOLOGY LABS He has staph aureus growing out of two sets of blood cultures on 11/10/2016. FINAL DIAGNOSIS 1. Bacteremia. 2. Below neck paralysis. 3. Cardiomyopathy. 4. CHF. 5. IV drug abuse. 6. Heroin abuse. 7. Cocaine abuse. 8. Hypokalemia. 9. Hyponatremia. 10. Elevated liver enzymes. 11. Hypoalbuminemia. 12. Dysphasia. 13. Anemia. 14. Thrombocytopenia. 15. Elevated white count. DISCUSSION At this point in time the patient has significant dysphagia and therefore recommend GI consult prior to any consideration for IVY. Also, given his unstable neurologic status would prefer to postpone IVY for the immediate time being until the etiology to his neurologic symptoms are elucidated and defined and/or stabilized. Will continue to follow. MD DOLORES Esquivel/SUZY /6:09 PM /8:27 PM
--- NOTE | 2016-11-12 23:42 | HHI.PR ---
Review/Management Diagnosis -Encephalopathy Meningio-encephalitic etiology - Flaccid areflexic quadriplegia Possible diagnosis is GBS or GBS variant, given the clinical presentation, the neurologic findings, absence of sensory level and areflexia that is not pertinent to a cervical myelopathic pattern. CSF findings are not typical without the picture of albumino-cytologic dissociation. - In light of the elevated CSF WBC, may consider HIC, Lyme & Sarcoidosis in the differential diagnosis -IV drug abuse,heroin - Acute/subacute cerebellar lacunar infarction Plan -Neuro-checks Q1h - Start IVIG 0.4gm/kg/day for 5 treatments - Continue supportive medical therapy - DVT prophylaxis - GI prophylaxis - MRI C spine w/o & w contrast - MRI brain w/o & w contrast - GM1 antibodies - Follow up for CSF results - Check VC Q12h - Swallow evaluation Diagnosis/Plan: Subjective Subjective Comments Neurology follow up, covering for Dr. Campos Patient is awake, aware, unable to move all 4 extremities Difficulty in breathing, using accessory muscles of respiration CSF revealed elevated WBC, protein, the latter may be secondary to xanthochromia C spine MRI w/o contrast with a lesion NSG with no surgical intervention Infectious disease specialist starting antibiotic and recommend IVY Active Medications Current Medications Medications (Trade) Dose Ordered Sig/Chantel Route Start Time Stop Time Status Last Admin (Narcan Inj) 0.4 mg UNSCH PRN IV 11/08/16 21:45 (TEGretol) 200 mg TID PO 11/09/16 14:00 11/12/16 17:35 (Xanax) 1 mg Q8H PRN PO 11/09/16 13:00 11/12/16 18:24 (Tylenol) 650 mg Q4H PRN PO 11/09/16 13:15 11/12/16 20:17 (NS Flush) 2 ml BID IV FLUSH 11/09/16 21:00 11/12/16 20:17 (NS Flush) 2 ml UNSCH PRN IV FLUSH 11/09/16 18:00 Potassium Chloride/Dextrose/ Sod Cl 1,000 ml @ 100 mls/hr Q10H IV 11/10/16 10:00 11/12/16 13:00 (Heparin Inj) 5,000 units Q12H SQ 11/10/16 10:00 11/12/16 21:05 Miscellaneous Information Patient in critical care unit? Ass... [id number] .XX 11/10/16 21:15 (Chlorhexidine 2% Cloth) 3 pack DAILY@04 TOPICAL 11/11/16 04:00 11/15/16 04:01 11/12/16 03:46 (Chlorhexidine 2% Cloth) 3 pack UNSCH PRN TOPICAL 11/10/16 21:15 11/15/16 21:12 Ceftaroline Fosamil 600 mg/ Sodium Chloride 100 ml @ 100 mls/hr Q12H IV 11/11/16 14:00 11/12/16 13:00 (Vasotec Inj) 1.25 mg Q6H PRN IV 11/11/16 13:00 (Ativan) 0.5 mg Q6H PRN PO 11/12/16 09:45 11/12/16 20:17 Allergies Allergies Coded Allergies penicillin G (Unverified Allergy, Severe, SWELLING, 11/08/16) vancomycin (Unverified Allergy, Severe, BP ELEVATION, 11/08/16) Review of Systems All other ROS: ROS reviewed as documented in chart Exam I&O / VS 11/12/16 11/12/16 11/13/16 14:59 22:59 06:59 Intake Total 345 ml 1046 ml Output Total 925 ml Balance 345 ml 121 ml Intake Oral 0 ml IV Total 345 ml 1046 ml Output Urine Total 925 ml # Bowel Movements 0 Vital Signs Date Time Temp Pulse Resp B/P (MAP) Pulse Ox O2 Delivery O2 Flow Rate FiO2 11/12/16 22:00 68 11/12/16 20:00 99.4 69 28 141/88 (105) 95 11/12/16 20:00 69 11/12/16 18:00 70 11/12/16 18:00 70 39 133/83 (100) 94 11/12/16 17:00 66 31 143/86 (105) 95 11/12/16 16:00 99.0 63 32 153/88 (109) 96 11/12/16 16:00 63 11/12/16 15:00 65 29 139/86 (103) 96 11/12/16 14:00 63 29 153/87 (109) 97 11/12/16 14:00 63 11/12/16 13:00 66 33 145/87 (106) 94 11/12/16 12:00 65 11/12/16 12:00 99.0 65 28 138/83 (101) 95 11/12/16 11:00 64 32 157/91 (113) 95 11/12/16 10:00 62 28 166/91 (116) 94 11/12/16 10:00 62 11/12/16 09:00 58 28 151/85 (107) 94 11/12/16 08:00 98.8 60 26 145/83 (103) 96 11/12/16 08:00 60 11/12/16 07:52 97 Nasal Cannula 3.00 11/12/16 07:00 62 26 157/84 (108) 96 11/12/16 06:00 68 11/12/16 04:00 99.7 61 28 160/85 (110) 93 11/12/16 04:00 61 11/12/16 02:00 60 11/12/16 00:00 60 11/12/16 00:00 99.8 60 25 150/84 (106) 93 General: Alert and Oriented, Mild distress Eye: PERRL, Normal conjuctiva, Vision unchanged Respiratory: Other (laboured respiration) Cardiology: Normal rate, Normal peripheral perfusion Neurologic: Alert, Oriented, Other (Awake, alert, oriented to person, place and time, intact speech, no dysarhtria, no dyshasia, two beats of horizontal nystagmus to the right , one beat to the left side, no facial asymetry, flaccid quadriplegia, areflexic throughout, plantars reflexes are b/l downgoing. inconsistent diminished sensation that does not follow an anatomic pattern, no definite sneosty level.) Psychiatric: Cooperative, Appropriate mood & affect Objective Radiology Results Last 72 hours Impressions Lumbar Puncture Fluoroscopy 11/11/16 0000 Signed Impressions: Service Date/Time: Friday, November 11, 2016 13:40 - CONCLUSION: Uncomplicated fluoroscopically guided lumbar puncture with pressures as above. Yayo Barone Jr., MD [facility] Laboratory Tests Test 11/12/16 03:26 11/12/16 12:05 White Blood Count 10.3 Red Blood Count 3.02 Hemoglobin 9.5 Hematocrit 28.0 Mean Corpuscular Volume 92.6 Mean Corpuscular Hemoglobin 31.6 Mean Corpuscular Hemoglobin Concent 34.1 Red Cell Distribution Width 13.1 Platelet Count 146 Mean Platelet Volume 8.3 Blood Urea Nitrogen 53 Creatinine 0.82 Random Glucose 118 Total Protein 5.5 Albumin 1.6 Calcium Level 8.0 Alkaline Phosphatase 129 Aspartate Amino Transf (AST/SGOT) 52 Alanine Aminotransferase (ALT/SGPT) 35 Total Bilirubin 0.4 Direct Bilirubin 0.2 Sodium Level 143 Potassium Level 3.4 Chloride Level 110 Carbon Dioxide Level 26.1 Anion Gap 7 Estimat Glomerular Filtration Rate 96 Indirect Bilirubin 0.2 C-Reactive Protein 22.00 Date/Time Source Procedure Growth Status 11/12/16 17:05 Blood Peripheral Aerobic Blood Culture Pending Received 11/12/16 17:05 Blood Peripheral Anaerobic Blood Culture Pending Received 11/11/16 13:50 Cerebral Spinal Fluid Lumbar Puncture Acid Fast Stain Pending Received 11/11/16 13:50 Cerebral Spinal Fluid Lumbar Puncture Mycobacterial Culture Pending Received 11/09/16 17:30 Urine Clean Catch Urine Culture - Final <10,000 CFU/ML GRAM POSITIVE TOMASA Complete Bethanie King MD Nov 12, 2016 23:42
[2016-11-13] VITALS (18 sets, daily range): BP systolic 128–170; BP diastolic 80–98; PULSE 64–79; RESP 30–41; TEMP 97.8–99.2; O2SAT 94–100
[2016-11-13] MEDS ORDERED: ACETAMINOPHEN 325 MG TAB PO SCH ×2 (00:15→09:00)
[2016-11-13] MEDS ORDERED: SODIUM CHLORID 0.9% 500 ML INJ 500 ML IV SCH ×2 (00:15→09:00)
[2016-11-13] MEDS ORDERED: diphenhydrAMINE HCL 25 MG CAP PO SCH ×2 (00:15→09:00)
[2016-11-13] MEDS ORDERED: DEXTROSE 5% IN WATE 500 ML INJ 500 ML OTHER SCH ×2 (01:04→09:00)
[2016-11-13] MEDS: LORazepam 0.5 MG TAB PO PRN ×2 (02:15→08:59)
[2016-11-13] MEDS: CHLORHEXIDINE GLUCONATE 2 % 1 PACK (2 CLOTHS)(taper/protocol) TOPICAL SCH (02:15)
[2016-11-13] MEDS: ACETAMINOPHEN 325 MG TAB PO PRN (02:15)
[2016-11-13] MEDS: CEFTAROLINE INJ 600 MG in SODIUM CHLORIDE 0.9% INJ 100 ML IV SCH (02:15)
[2016-11-13] MEDS: ALPRAZolam 1 MG TAB PO PRN ×2 (03:38→15:57)
[2016-11-13 04:27] LABS: MEAN CELL VOLUME 93.1 FL (80.0-100.0); MEAN CORPUSCULAR HEMOGLOBIN 30.9 PG (27.0-34.0); MEAN CORPUSCULAR HGB CONC 33.2 % (32.0-36.0); PLATELET COUNT 149 TH/MM3 (150-450); RED BLOOD COUNT 3.12 MIL/MM3 (4.50-5.90); REVIEW FLAG FINAL; WHITE BLOOD COUNT 11.9 TH/MM3 (4.0-11.0)
[2016-11-13 04:42] LABS: BICARBONATE 23.8 MEQ/L (21.0-32.0); POTASSIUM 4.1 MEQ/L (3.5-5.1)
[2016-11-13] MEDS ORDERED: EPINEPHrine HCL (1:1000) 1 MG/ML VIAL OTHER PRN (09:00)
[2016-11-13] MEDS: SODIUM CHLORIDE 0.9% FLUSH 5 ML FLUSH IV FLUSH SCH (09:00)
[2016-11-13] MEDS ORDERED: IMMUNE GLOBULIN INJ 20 GM in SYRINGE/BAG 1 EA IV SCH (09:00)
[2016-11-13] MEDS ORDERED: diphenhydrAMINE HCL 50 MG/ML VIAL IV PUSH PRN (09:00)
--- NOTE | 2016-11-13 09:38 | HHI.PR ---
Subjective Remarks Intermittent confusion. Less alert today. Still oriented and can answer questions appropriately. Objective Vitals Vital Signs Date Time Temp Pulse Resp B/P (MAP) Pulse Ox O2 Delivery O2 Flow Rate FiO2 11/13/16 07:50 95 Nasal Cannula 2.00 11/13/16 06:00 65 11/13/16 04:00 65 11/13/16 04:00 99.2 65 30 149/95 (113) 95 11/13/16 02:00 69 11/13/16 00:00 99.2 68 30 153/87 (109) 95 11/13/16 00:00 68 11/12/16 22:00 68 11/12/16 20:00 99.4 69 28 141/88 (105) 95 11/12/16 20:00 69 11/12/16 18:00 70 11/12/16 18:00 70 39 133/83 (100) 94 11/12/16 17:00 66 31 143/86 (105) 95 11/12/16 16:00 99.0 63 32 153/88 (109) 96 11/12/16 16:00 63 11/12/16 15:00 65 29 139/86 (103) 96 11/12/16 14:00 63 29 153/87 (109) 97 11/12/16 14:00 63 11/12/16 13:00 66 33 145/87 (106) 94 11/12/16 12:00 65 11/12/16 12:00 99.0 65 28 138/83 (101) 95 11/12/16 11:00 64 32 157/91 (113) 95 11/12/16 10:00 62 28 166/91 (116) 94 11/12/16 10:00 62 I/O 11/12/16 11/12/16 11/12/16 11/13/16 11/13/16 11/13/16 07:00 15:00 23:00 07:00 15:00 23:00 Intake Total 1414 ml 245 ml 1046 ml 1406 ml Output Total 900 ml 925 ml 900 ml Balance 514 ml 245 ml 121 ml 506 ml Intake Oral 0 ml 0 ml 300 ml IV Total 1414 ml 245 ml 1046 ml 1106 ml Output Urine Total 900 ml 925 ml 900 ml # Bowel Movements 0 0 0 Result Diagram: 11/13/16 0337 11/13/167 Objective Remarks GENERAL: More lethargic compared to yesterday. Cannot move any extremities. CARDIOVASCULAR: Normal rate and regular rhythm without murmurs, gallops, or rubs. RESPIRATORY: Diminished breath sounds at the bases. Otherwise clear to auscultation bilaterally. GASTROINTESTINAL: Abdomen soft, non-tender, non-distended. Normal active bowel sounds MUSCULOSKELETAL: Extremities without cyanosis, or edema. NEURO: Alert and oriented. Cannot move any extremities. Areflexic. PSYCH: Anxious A/P Assessment and Plan 61-year-old male with a medical history significant for psychiatric illness, chronic pain, opiate abuse who was admitted with overdose and decreased lower extremity strength. Patient is found to have a lacunar stroke. Patient now has bilateral upper and lower extremity paralysis. He is septic with gram- positive cocci bacteremia. CVA/ Flacid areflexic quadriplegia: - Neurology following and indicated the stroke is small and not the cause of his paralysis. Guillain-Burnett, cord infarcts being considered. HIC, Lyme & Sarcoidosis in the differential diagnosis - LP ordered. CSF is abnormal, xanthochromic, WBC high at 494, protein high at 597, glucose low at 11. Infectious and noninfectious etiology being considered. Patient is bacteremic. Onset of paralysis seem it developed over 4- 5 days. - Neurosurgery evaluated the patient. No surgical intervention for now. MRI with contrast recommended. - Neurology following. Patient started on IVIG for 5 treatments on 11/13. Renal functions recovered. MRI C spine w/o & w contrast MRI brain w/o & w contrast - Continue supportive care. Keep in ICU. At risk for respiratory failure. - Continue neuro checks. Sepsis with gram-positive cocci bacteremia: Patient is a known IV drug user. He was found down. He presented with leukocytosis, have since developed a fever. Abnormal urinalysis. Chest x-ray unremarkable - Appreciate infectious disease following, - Antibiotics switched to Ceftaroline. - 2-D echo did not rule out endocarditis. Patient too unstable for IVY. Probable drug overdose: Patient's toxicology was positive for cocaine, opiates, and benzodiazepines. Salicylate level slightly above normal. Patient was found down and reportedly had CPR. He responded to Narcan given by EMS. He is now on alert and oriented. Avoid sedating medications. Discontinue trazodone. Patient counseled on detrimental effects of illicit drugs. Acute renal failure: Likely prerenal azotemia. Resolved with IV fluid. Gentle IV fluid Hodge for I/O. Continue Hodge for now NECK/Back pain: Acute on chronic. Probably related to degenerative disease. -Heating pad History of anxiety/depression: Chronic. -Continue home Tegretol. DC trazodone to avoid oversedation. Ativan as needed. -Continue Wellbutrin DVT prophylaxis: Heparin. Discharge Planning Continue care in the ICU. At risk for respiratory failure and intubation Bogdan Mckeon MD Nov 13, 2016 09:38
[2016-11-13] MEDS ORDERED: GADODIAMIDE PF 287 MG/ML 5 ML VIAL (for RAD MRI) IVCONTRAST ONE (09:44)
--- NOTE | 2016-11-13 10:06 | RADRPT ---
EXAM DATE/TIME: 11/13/2016 09:12 [facility] COMPARISON: MRI BRAIN W/O CONTRAST, November 09, 2016, 16:18. INDICATIONS : Inability to ambulate. CONTRAST: 12 cc Omniscan (gadodiamide) IV MEDICAL HISTORY : Hepatitis C. Hypertension. 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 ENCOUNTER: Initial ACUITY: 1 week PAIN SCORE: 0/10 LOCATION: cranial TECHNIQUE: Multiplanar, multisequence MRI of the brain was performed both prior to and following the administrat ion of paramagnetic contrast. FINDINGS: CEREBRUM: The ventricles are normal for age. No evidence of midline shift, mass lesion, hemorrhage or acute in farction. No extraaxial fluid collections are seen. The pituitary gland and suprasellar cistern are normal in configuration. WHITE MATTER: No significant signal abnormalities are seen in the white matter. POSTERIOR FOSSA: There is a stable appearance of a focal area of restricted diffusion within the left cerebellum consi stent with an acute infarct. No surrounding edema. No abnormal enhancement. DIFFUSION IMAGING: Stable focal area for strict diffusion involving the left cerebellum.. EXTRACRANIAL: The visualized portions of the orbits and paranasal sinuses are unremarkable. POST-CONTRAST: No abnormal areas of parenchymal or dural enhancement. No evidence of blood-brain barrier breakdown. CONCLUSION: Stable appearance of a focal area of restricted diffusion involving the left cerebellum consistent wi th an acute infarct. No other abnormality noted.. Aleyda Rush MD on November 13, 2016 at 10:01 Board Certified Radiologist. This report was verified electronically.
--- NOTE | 2016-11-13 10:16 | RADRPT ---
EXAM DATE/TIME: 11/13/2016 09:12 [facility] COMPARISON: MRI CERVICAL SPINE W/O CONTRAST, November 09, 2016, 16:18. INDICATIONS : Inability to ambulate. CONTRAST: 12 cc Omniscan (gadodiamide) IV MEDICAL HISTORY : Hepatitis C. IVDA. 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 ENCOUNTER: Initial ACUITY: 1 day PAIN SCORE: 0/10 LOCATION: neck TECHNIQUE: Multiplanar, multisequence MRI examination of the cervical spine was performed. FINDINGS: This is a significantly abnormal exam. There has been progressive prevertebral soft tissue edema extending from the anterior aspect of the C 4 vertebral body through the superior endplate of C7. There is a area of non-enhancement measuring 3. 4 x 1.2 cm in size consistent with an abscess or hematoma. The vertebral bodies are significant for i ncreased T2 signal within the fifth and sixth vertebral bodies with patchy areas of low signal after the administration of contrast. There is straightening of the cervical spine with otherwise normal al ignment. There is abnormal expansion of the cord from the level of C2 through the level of C7 with increased T 2 signal and no evidence of enhancement after the administration of contrast. There is increased T2 s ignal identified within the posterior soft tissues of the neck with hazy enhancement after the admini stration of contrast. CONCLUSION: Significantly abnormal exam with progressive prevertebral soft tissue edema, focal nonenhancing fluid collection anterior to the level of C4-C7 progressive enlargement of the cervical cord with abnormal edema seen throughout the cord. In the absence of a history of trauma these findings are highly conc erning for a diffuse infectious process. Aleyda Rush MD on November 13, 2016 at 10:04 Board Certified Radiologist. This report was verified electronically.
[2016-11-13] MEDS: carBAMazepine 200 MG TAB PO SCH ×3 (10:26→18:00)
[2016-11-13] MEDS: HEPARIN SODIUM - SQ 10,000 UNITS/ML VIAL SQ SCH (10:27)
--- NOTE | 2016-11-13 10:57 | PD.CONS ---
HPI History of Present Illness This is a 61 year old male with hx IV drug abuse, methadone use, inectious brain aneurysm, who was found down, getting CPR who presented with BUE and BLE paresis. he was found to have bacteremia, lacunar stroke as well. Recent cervical MRI shows fluid collection anterior c4-c7, enlargement spinal cord, abnormal edema concerning for diffuse infectious process. GI has been consulted for complaint of dysphagia. A few days ago pt had some difficulty swallowing pills and since has had bolus sensation. He feels something is stuck in his throat and has some discomfort. Denies n/v, prior difficulty swallowing. Never had EGD. Majority of hx obtained from EMR and RN, pt weak and has difficulty speaking. (Sridevi Reyez) PFSH Past Medical History Anxiety/depression Chronic pain History of opiate abuse/dependence Past Surgical History Denies any past surgeries Does have a history of left wrist and ankle fracture (Sridevi Reyez) Coded Allergies: penicillin G (Unverified Allergy, Severe, SWELLING, 11/08/16) vancomycin (Unverified Allergy, Severe, BP ELEVATION, 11/08/16) Family History IV heroin use Smokes one pack per day Denies any alcohol use Social History Reports father is getting Parkinson's (Sridevi Reyez) Review of Systems ROS non contributory (Sridevi Reyez) GI Exam Vitals I&O Vital Signs Date Time Temp Pulse Resp B/P (MAP) Pulse Ox O2 Delivery O2 Flow Rate FiO2 11/13/16 10:25 82 22 148/98 11/13/16 07:50 95 Nasal Cannula 2.00 11/13/16 06:00 65 11/13/16 04:00 65 11/13/16 04:00 99.2 65 30 149/95 (113) 95 11/13/16 02:00 69 11/13/16 00:00 99.2 68 30 153/87 (109) 95 11/13/16 00:00 68 11/12/16 22:00 68 11/12/16 20:00 99.4 69 28 141/88 (105) 95 11/12/16 20:00 69 11/12/16 18:00 70 11/12/16 18:00 70 39 133/83 (100) 94 11/12/16 17:00 66 31 143/86 (105) 95 11/12/16 16:00 99.0 63 32 153/88 (109) 96 11/12/16 16:00 63 11/12/16 15:00 65 29 139/86 (103) 96 11/12/16 14:00 63 29 153/87 (109) 97 11/12/16 14:00 63 11/12/16 13:00 66 33 145/87 (106) 94 11/12/16 12:00 65 11/12/16 12:00 99.0 65 28 138/83 (101) 95 11/12/16 11:00 64 32 157/91 (113) 95 I/O 11/12/16 11/12/16 11/12/16 11/13/16 11/13/16 11/13/16 06:59 14:59 22:59 06:59 14:59 22:59 Intake Total 1314 ml 345 ml 1046 ml 1406 ml Output Total 900 ml 925 ml 900 ml Balance 414 ml 345 ml 121 ml 506 ml Intake Oral 0 ml 0 ml 300 ml IV Total 1314 ml 345 ml 1046 ml 1106 ml Output Urine Total 900 ml 925 ml 900 ml # Bowel Movements 0 0 0 Imaging Last Impressions Cervical Spine MRI 11/13/16 0000 Signed Impressions: Service Date/Time: Sunday, November 13, 2016 09:12 - CONCLUSION: Significantly abnormal exam with progressive prevertebral soft tissue edema, focal nonenhancing fluid collection anterior to the level of C4-C7 progressive enlargement of the cervical cord with abnormal edema seen throughout the cord. In the absence of a history of trauma these findings are highly concerning for a diffuse infectious process. Aleyda Rush MD Brain MRI 11/13/16 0000 Signed Impressions: Service Date/Time: Sunday, November 13, 2016 09:12 - CONCLUSION: Stable appearance of a focal area of restricted diffusion involving the left cerebellum consistent with an acute infarct. No other abnormality noted.. Aleyda Rush MD Lumbar Puncture Fluoroscopy 11/11/16 0000 Signed Impressions: Service Date/Time: Friday, November 11, 2016 13:40 - CONCLUSION: Uncomplicated fluoroscopically guided lumbar puncture with pressures as above. Yayo Barone Jr., MD Thoracic Spine MRI 11/09/16 0000 Signed Impressions: Service Date/Time: Wednesday, November 09, 2016 16:18 - CONCLUSION: 1. There is degenerative disc disease of the cervical spine which is incompletely evaluated on this study. 2. The thoracic spine is normal for age with minimal degenerative changes and no canal or foraminal stenosis. Petey Oseguera MD Carotid Artery Ultrasound 11/09/16 0000 Signed Impressions: Service Date/Time: Wednesday, November 09, 2016 21:00 - CONCLUSION: 1. Negative for carotid stenosis or significant plaque formation. Vertebral artery flow antegrade bilaterally. Aldair Garcia MD Shoulder X-Ray 11/08/16 0000 Signed Impressions: Service Date/Time: Tuesday, November 08, 2016 18:32 - CONCLUSION: No acute left shoulder abnormality is identified on this two-view examination. There is osteoarthritis at the acromioclavicular joint. Jerry Ghotra MD Lumbar Spine MRI 11/08/16 0000 Signed Impressions: Service Date/Time: Tuesday, November 08, 2016 19:29 - CONCLUSION: 1. Grade 1 anterolisthesis at L4-L5 secondary to severe facet hypertrophy. Diffuse disc bulges present very mildly narrowing the spinal canal and there is mild neural foraminal narrowing bilaterally. 2. 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 3. Very large cystic structure within the pelvis presumably a very distended urinary bladder since it appears midline. Suggest correlation with the clinical examination. Jerry Ghotra MD Head CT 11/08/16 0000 Signed Impressions: Service Date/Time: Tuesday, November 08, 2016 18:39 - CONCLUSION: No acute intracranial abnormality is identified. Jerry Ghotra MD Chest X-Ray 11/08/16 0000 Signed Impressions: Service Date/Time: Tuesday, November 08, 2016 18:31 - CONCLUSION: No acute cardiopulmonary abnormality is identified. Jerry Ghotra MD Cervical Spine CT 11/08/16 0000 Signed Impressions: Service Date/Time: Tuesday, November 08, 2016 18:39 - CONCLUSION: 1. No acute cervical spine abnormality is identified. 2. Multilevel degenerative disc disease. Jerry Ghotra MD Laboratory Test 11/12/16 12:05 11/13/16 03:37 C-Reactive Protein 22.00 MG/DL White Blood Count 11.9 TH/MM3 Red Blood Count 3.12 MIL/MM3 Hemoglobin 9.6 GM/DL Hematocrit 29.0 % Mean Corpuscular Volume 93.1 FL Mean Corpuscular Hemoglobin 30.9 PG Mean Corpuscular Hemoglobin Concent 33.2 % Red Cell Distribution Width 13.0 % Platelet Count 149 TH/MM3 Mean Platelet Volume 8.4 FL Blood Urea Nitrogen 44 MG/DL Creatinine 0.73 MG/DL Random Glucose 107 MG/DL Calcium Level 7.9 MG/DL Sodium Level 141 MEQ/L Potassium Level 4.1 MEQ/L Chloride Level 109 MEQ/L Carbon Dioxide Level 23.8 MEQ/L Anion Gap 8 MEQ/L Estimat Glomerular Filtration Rate 110 ML/MIN Date/Time Source Procedure Growth Status 11/12/16 17:05 Blood Peripheral Aerobic Blood Culture Pending Received 11/12/16 17:05 Blood Peripheral Anaerobic Blood Culture Pending Received 11/11/16 13:50 Cerebral Spinal Fluid Lumbar Puncture Acid Fast Stain Pending Received 11/11/16 13:50 Cerebral Spinal Fluid Lumbar Puncture Mycobacterial Culture Pending Received 11/09/16 17:30 Urine Clean Catch Urine Culture - Final <10,000 CFU/ML GRAM POSITIVE TOMASA Complete Physical Examination HEENT: PERRL; normocephalic; atraumatic; no jaundice. CHEST: CTA, respirations shallow, SOB to conversation CARDIAC: RRR ABDOMEN: Soft, nondistended, nontender; no hepatosplenomegaly; bowel sounds are present in all four quadrants. EXTREMITIES: No clubbing, cyanosis, or edema. SKIN: Normal; no rash; no jaundice. [employer]ING [employer]PER[employer]OR: weak, lethargic (Sridevi Reyez) Assessment and Plan Plan ASSESSMENT - dysphagia, bolus sensation - pt reports feeling something stuck in his throat few days ago and today, trouble swallowing pills. Per RN was able to swallow some pills with applesauce today. no hx dysphagia and recent cervical MRI concerning for diffuse infectious process, poss abscess c4-c7. do not feel EGD would be beneficial at this time. d/w primary - CVA/bilat upper and lower paralysis, per primary- neurosurgery following - sepsis gram pos cocci, per primary - ID following - prob drug OD - per primary, pos cocaine, opaites, benzos, high salicylates - ARF - per primary PLAN - await further w/u for poss spinal cord abscess - GI will s/o, please reconsult if needed This pt seen by myself and Dr Tim and this note is written on his behalf (Sridevi Reyez) Physician Comments Seen and examined with Sariah, MRI findings noted, dysphagia related to external compression from the abscess, please notify us if needed. (Lisa Tim MD) Sridevi Reyez Nov 13, 2016 10:57 Lisa Tim MD Nov 13, 2016 12:13
[2016-11-13] MEDS: D5-1/2 NS + KCL 10 MEQ INJ 1,000 ML IV SCH (11:17)
--- NOTE | 2016-11-13 11:47 | PD.CARD.PN ---
Subjective Subjective Remarks asleep in nad Objective Vital Signs / I&O Vital Signs Date Time Temp Pulse Resp B/P (MAP) Pulse Ox O2 Delivery O2 Flow Rate FiO2 11/13/16 11:31 80 26 151/94 11/13/16 10:25 82 22 148/98 11/13/16 07:50 95 Nasal Cannula 2.00 11/13/16 06:00 65 11/13/16 04:00 65 11/13/16 04:00 99.2 65 30 149/95 (113) 95 11/13/16 02:00 69 11/13/16 00:00 99.2 68 30 153/87 (109) 95 11/13/16 00:00 68 11/12/16 22:00 68 11/12/16 20:00 99.4 69 28 141/88 (105) 95 11/12/16 20:00 69 11/12/16 18:00 70 11/12/16 18:00 70 39 133/83 (100) 94 11/12/16 17:00 66 31 143/86 (105) 95 11/12/16 16:00 99.0 63 32 153/88 (109) 96 11/12/16 16:00 63 11/12/16 15:00 65 29 139/86 (103) 96 11/12/16 14:00 63 29 153/87 (109) 97 11/12/16 14:00 63 11/12/16 13:00 66 33 145/87 (106) 94 11/12/16 12:00 65 11/12/16 12:00 99.0 65 28 138/83 (101) 95 I/O 11/12/16 11/12/16 11/12/16 11/13/16 11/13/16 11/13/16 07:00 15:00 23:00 07:00 15:00 23:00 Intake Total 1414 ml 245 ml 1046 ml 1406 ml Output Total 900 ml 925 ml 900 ml Balance 514 ml 245 ml 121 ml 506 ml Intake Oral 0 ml 0 ml 300 ml IV Total 1414 ml 245 ml 1046 ml 1106 ml Output Urine Total 900 ml 925 ml 900 ml # Bowel Movements 0 0 0 Physical Exam GENERAL: SKIN: Warm and dry. HEAD: Normocephalic. EYES: No scleral icterus. No injection or drainage. NECK: Supple, trachea midline. No JVD or lymphadenopathy. CARDIOVASCULAR: Regular rate and rhythm without murmurs, gallops, or rubs. RESPIRATORY: Breath sounds equal bilaterally. No accessory muscle use. GASTROINTESTINAL: Abdomen soft, non-tender, nondistended. MUSCULOSKELETAL: No cyanosis, or edema. BACK: Nontender without obvious deformity. No CVA tenderness. Laboratory Laboratory Tests Test 11/12/16 12:05 11/13/16 03:37 C-Reactive Protein 22.00 MG/DL White Blood Count 11.9 TH/MM3 Red Blood Count 3.12 MIL/MM3 Hemoglobin 9.6 GM/DL Hematocrit 29.0 % Mean Corpuscular Volume 93.1 FL Mean Corpuscular Hemoglobin 30.9 PG Mean Corpuscular Hemoglobin Concent 33.2 % Red Cell Distribution Width 13.0 % Platelet Count 149 TH/MM3 Mean Platelet Volume 8.4 FL Blood Urea Nitrogen 44 MG/DL Creatinine 0.73 MG/DL Random Glucose 107 MG/DL Calcium Level 7.9 MG/DL Sodium Level 141 MEQ/L Potassium Level 4.1 MEQ/L Chloride Level 109 MEQ/L Carbon Dioxide Level 23.8 MEQ/L Anion Gap 8 MEQ/L Estimat Glomerular Filtration Rate 110 ML/MIN Assessment and Plan Problem List: (1) Cardiomyopathy ICD Codes: I42.9 - Cardiomyopathy, unspecified (2) Bacteremia ICD Codes: R78.81 - Bacteremia (3) Endocarditis ICD Codes: I38 - Endocarditis, valve unspecified (4) CVA (cerebral vascular accident) ICD Codes: I63.9 - Cerebral infarction, unspecified (5) Dysphagia ICD Codes: R13.10 - Dysphagia, unspecified (6) Renal insufficiency ICD Codes: N28.9 - Disorder of kidney and ureter, unspecified Status: Acute (7) Neurologic gait dysfunction ICD Codes: R26.9 - Unspecified abnormalities of gait and mobility Status: Acute (8) Heroin overdose ICD Codes: T40.1X1A - Poisoning by heroin, accidental (unintentional), initial encounter Status: Acute Assessment and Plan 1.) Cardiomyopathy - omt held due to unstable neurologic status, recent cva, cervical spinal chord compression/myolitis 2.) probable endocarditis - kenrick canceled due to dysphagia and unstable neurologic status. d/w Dr Cho and Dr Donis Problem Qualifiers (1) Heroin overdose: Qualified Codes: T40.1X1A - Poisoning by heroin, accidental (unintentional), initial encounter Anton Jones MD Nov 13, 2016 11:47
[2016-11-13] MEDS ORDERED: MORPHINE SULFATE 4 MG/ML INJ IV PUSH PRN (12:00)
[2016-11-13] MEDS ORDERED: LORazepam 2 MG/ML VIAL IV PUSH PRN (12:00)
--- NOTE | 2016-11-13 12:02 | HHI.IDPN ---
Subjective Subjective Remarks ID Xcover for . Chart reviewed. is a 61-year-old white male who was brought to the emergency department after he was found down. The patient reportedly was given Narcan for potential drug overdose. It is noted that the paramedics found his son giving him CPR when the arrived on the scene. Most information is obtained from the medical record. The patient is noted to be an IV drug user. He denies use of IV drugs to me. He admits to being on methadone. The patient was having difficulty moving his legs. He also had difficulty moving the upper extremities. An MRI of the brain showed left cerebellar infarct. Blood cultures were taken and results are pending. Urinalysis revealed 45 white cells. Urine culture has less than 10,000 colonies of gram-positive justino. He the patient has fever with temperature of 103 degrees early this morning. His white blood cell count was 12.2 yesterday and today it is down to 8.7. Chest x-ray shows no acute cardiopulmonary disease. The patient states that he has pain in his back. He has had scan of the thoracic, cervical and lumbar spine. Lumbar spine shows grade I anterolisthesis at L4-L5. Severe facet hypertrophy. Diffuse disk bulges present with mild narrowing. Thoracic MRI shows degenerative disk disease at the cervical spine. The cervical MRI showed moderate multilevel canal stenosis secondary to the degenerative disk disease. PAST MEDICAL HISTORY: 1. Chronic pain with opiate abuse. 2. psychiatric illness. 3. History of anxiety, depression. The patient reportedly uses heroin daily Overnight events reviewed. No fevers overnight. Progressed to have dysphagia. Now complaining of resp difficulty and on 2L NC. Not on pressors. Appears more lethargic today. Tetraplegic, areflexic from neck below MRI findings noted with cervical level muscle swelling possible epidural abscess. Urine output on the lower side,creatinine elevated No diarrhea No rash Antibiotics Teflaro IV Lines Line sites with no evidence of infection. Past Medical History Reviewed. Allergies: Coded Allergies: penicillin G (Unverified Allergy, Severe, SWELLING, 11/08/16) vancomycin (Unverified Allergy, Severe, BP ELEVATION, 11/08/16) Objective . Vital Signs Date Time Temp Pulse Resp B/P (MAP) Pulse Ox O2 Delivery O2 Flow Rate FiO2 11/13/16 11:31 80 26 151/94 11/13/16 10:25 82 22 148/98 11/13/16 07:50 95 Nasal Cannula 2.00 11/13/16 06:00 65 11/13/16 04:00 65 11/13/16 04:00 99.2 65 30 149/95 (113) 95 11/13/16 02:00 69 11/13/16 00:00 99.2 68 30 153/87 (109) 95 11/13/16 00:00 68 11/12/16 22:00 68 11/12/16 20:00 99.4 69 28 141/88 (105) 95 11/12/16 20:00 69 11/12/16 18:00 70 11/12/16 18:00 70 39 133/83 (100) 94 11/12/16 17:00 66 31 143/86 (105) 95 11/12/16 16:00 99.0 63 32 153/88 (109) 96 11/12/16 16:00 63 11/12/16 15:00 65 29 139/86 (103) 96 11/12/16 14:00 63 29 153/87 (109) 97 11/12/16 14:00 63 11/12/16 13:00 66 33 145/87 (106) 94 11/12/16 12:00 65 11/12/16 12:00 99.0 65 28 138/83 (101) 95 . Laboratory Tests Test 11/12/16 03:26 11/13/16 03:37 White Blood Count 10.3 TH/MM3 11.9 TH/MM3 Red Blood Count 3.02 MIL/MM3 3.12 MIL/MM3 Hemoglobin 9.5 GM/DL 9.6 GM/DL Hematocrit 28.0 % 29.0 % Mean Corpuscular Volume 92.6 FL 93.1 FL Mean Corpuscular Hemoglobin 31.6 PG 30.9 PG Mean Corpuscular Hemoglobin Concent 34.1 % 33.2 % Red Cell Distribution Width 13.1 % 13.0 % Platelet Count 146 TH/MM3 149 TH/MM3 Mean Platelet Volume 8.3 FL 8.4 FL Laboratory Tests Test 11/12/16 03:26 11/12/16 12:05 11/13/16 03:37 Blood Urea Nitrogen 53 MG/DL 44 MG/DL Creatinine 0.82 MG/DL 0.73 MG/DL Random Glucose 118 MG/DL 107 MG/DL Total Protein 5.5 GM/DL Albumin 1.6 GM/DL Calcium Level 8.0 MG/DL 7.9 MG/DL Alkaline Phosphatase 129 U/L Aspartate Amino Transf (AST/SGOT) 52 U/L Alanine Aminotransferase (ALT/SGPT) 35 U/L Total Bilirubin 0.4 MG/DL Direct Bilirubin 0.2 MG/DL Sodium Level 143 MEQ/L 141 MEQ/L Potassium Level 3.4 MEQ/L 4.1 MEQ/L Chloride Level 110 MEQ/L 109 MEQ/L Carbon Dioxide Level 26.1 MEQ/L 23.8 MEQ/L Anion Gap 7 MEQ/L 8 MEQ/L Estimat Glomerular Filtration Rate 96 ML/MIN 110 ML/MIN Indirect Bilirubin 0.2 MG/DL C-Reactive Protein 22.00 MG/DL Microbiology Date/Time Source Procedure Growth Status 11/12/16 17:05 Blood Peripheral Aerobic Blood Culture - Preliminary NO GROWTH IN 1 DAY Resulted 11/12/16 17:05 Blood Peripheral Anaerobic Blood Culture - Preliminary NO GROWTH IN 1 DAY Resulted 11/12/16 15:58 Blood Peripheral Aerobic Blood Culture - Preliminary NO GROWTH IN 1 DAY Resulted 11/12/16 15:58 Blood Peripheral Anaerobic Blood Culture - Preliminary NO GROWTH IN 1 DAY Resulted 11/10/16 13:35 Blood Peripheral Aerobic Blood Culture - Preliminary Staphylococcus Aureus Resulted 11/10/16 13:35 Anaerobic Blood Culture - Preliminary Staphylococcus Aureus Resulted 11/10/16 13:30 Blood Peripheral Aerobic Blood Culture - Preliminary Staphylococcus Aureus Resulted 11/10/16 13:30 Anaerobic Blood Culture - Preliminary Staphylococcus Aureus Resulted 11/11/16 13:50 Cerebral Spinal Fluid Lumbar Puncture Acid Fast Stain Pending Received 11/11/16 13:50 Cerebral Spinal Fluid Lumbar Puncture Mycobacterial Culture Pending Received 11/11/16 13:50 Cerebral Spinal Fluid Lumbar Puncture Gram Stain - Final Resulted 11/11/16 13:50 Cerebral Spinal Fluid Lumbar Puncture CSF Culture - Preliminary NO GROWTH IN 48 HOURS. Resulted Imaging Last Impressions Lumbar Puncture Fluoroscopy 11/11/16 0000 Signed Impressions: Service Date/Time: Friday, November 11, 2016 13:40 - CONCLUSION: Uncomplicated fluoroscopically guided lumbar puncture with pressures as above. Yayo Barone Jr., MD Thoracic Spine MRI 11/09/16 0000 Signed Impressions: Service Date/Time: Wednesday, November 09, 2016 16:18 - CONCLUSION: 1. There is degenerative disc disease of the cervical spine which is incompletely evaluated on this study. 2. The thoracic spine is normal for age with minimal degenerative changes and no canal or foraminal stenosis. Petey Oseguera MD Cervical Spine MRI 11/09/16 Signed Impressions: Service Date/Time: Wednesday, November 09, 2016 16:18 - CONCLUSION: 1. Moderate multilevel canal stenosis secondary to degenerative disc disease. 2. There is associated mild impression on the cord and abnormal increased T2 signal within the spinal cord. It is difficult to exclude mild expansion of the cord on sagittal series. 3. There is mild prevertebral soft tissue swelling identified. Petey Oseguera MD Carotid Artery Ultrasound 11/09/16 Signed Impressions: Service Date/Time: Wednesday, November 09, 2016 21:00 - CONCLUSION: 1. Negative for carotid stenosis or significant plaque formation. Vertebral artery flow antegrade bilaterally. Aldair Garcia MD Brain MRI 11/09/16 Signed Impressions: Service Date/Time: Wednesday, November 09, 2016 16:18 - CONCLUSION: 1. Left cerebellar infarct, lacunar. Petey Oseguera MD Shoulder X-Ray 11/08/16 Signed Impressions: Service Date/Time: Tuesday, November 08, 2016 18:32 - CONCLUSION: No acute left shoulder abnormality is identified on this two-view examination. There is osteoarthritis at the acromioclavicular joint. Jerry Ghotra MD Lumbar Spine MRI 11/08/16 Signed Impressions: Service Date/Time: Tuesday, November 08, 2016 19:29 - CONCLUSION: 1. Grade 1 anterolisthesis at L4-L5 secondary to severe facet hypertrophy. Diffuse disc bulges present very mildly narrowing the spinal canal and there is mild neural foraminal narrowing bilaterally. 2. 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 3. Very large cystic structure within the pelvis presumably a very distended urinary bladder since it appears midline. Suggest correlation with the clinical examination. Jerry Ghotra MD Head CT 11/08/16 Signed Impressions: Service Date/Time: Tuesday, November 08, 2016 18:39 - CONCLUSION: No acute intracranial abnormality is identified. Jerry Ghotra MD Chest X-Ray 8/22/17 0000 Signed Impressions: Service Date/Time: Tuesday, November 08, 2016 18:31 - CONCLUSION: No acute cardiopulmonary abnormality is identified. Jerry Ghotra MD Cervical Spine CT 11/08/16 0000 Signed Impressions: Service Date/Time: Tuesday, November 08, 2016 18:39 - CONCLUSION: 1. No acute cervical spine abnormality is identified. 2. Multilevel degenerative disc disease. Jerry Ghotra MD Physical Exam PHYSICAL EXAMINATION: IN GENERAL: No acute distress. He is awake. appears to be in resp distress using accessory muscles of respiration. HEAD, EYES, EARS, NOSE, AND THROAT: Head is atraumatic. The extraocular movements appear grossly intact. Pupils reactive to light. No icterus. Oropharynx, no visible lesions. NECK: (+) nuccal rigidity. Lethargic. Very sluggish. LUNGS: Decreased breath sounds. HEART: Regular rate and rhythm. No murmurs or rubs or gallops. ABDOMEN: Bowel sounds present, soft and flat, nontender. EXTREMITIES: No clubbing or cyanosis or edema. SKIN: No rash. NEUROLOGIC: No movement of arms or legs. PSYCHIATRIC: Psych unable to assess. Assessment & Plan Remarks Severe Sepsis present on admission (MODS: Acute renal failure, encephalopathy) Gram positive bacteremia. Probable endocarditis. 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 Acute Cerebellar infarct: ? septic emboli related. Could turn into an abscess. Acute bacterial meningitis. Acute renal disease probably related to drug ingestion vs sepsis. Allergy to PENICILLIN AND VANCOMYCIN. History of hepatitis B as reported by patient Acute metabolic encephalopathy: Meningitis, sepsis. Intravenous drug abuse RECOMMENDATIONS Continue Teflaro/Ceftaroline IV (ASP: Vanco and PCN allergy). Patient's family would like to stop all antibiotics but will wait till Hospice sees patient. Cannot give Gentamicin due to renal failure. Follow cultures. Follow clinically. D/w Neurosurgery Dr.Vinas fonseca. D/w Cardiology : not a candidate for IVY at present time. D,w patients mother, father, sister in presence of and TRACE [place]: they would like to make him DNR, stop all antibiotics, transition to hospice. Explained all the current ID problems and deteriorating clinical condition to the family. Time spent in excess of 40 mins. Critical thinking, decision making, dMelissaw , RN and Family. Critical condition. Case dblack Haque as well. Mallory Roberts MD Nov 13, 2016 12:02
--- NOTE | 2016-11-13 13:44 | HHI.NSPN ---
Note Status Status: Progress Note Interval History Diagnosis sepsis Interval History is a 61-year-old white male who was brought to the emergency department after he was found unresponsive. He reportedly was given Narcan for potential drug overdose. The paramedics found his son giving him active CPR when they arrived. No seizure activity reported. No tongue biting. No incontinence of stool or urine . The patient is apparently known to be an IV drug user, he reports use of IV drugs in the form of heroin. He admits to being on methadone. He reports having difficulty moving his legs. He also is unable to move his upper extremities. has no rectal control or sensation. 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 Blood cultures were taken and results are pending. Urinalysis showed gram-positive justino. He the patient has fever with temperature of 103 degrees. His white blood cell count was elevated to 12.2 . Chest x-ray shows no acute cardiopulmonary disease. The patient states that he has pain in his back. He has had scan of the thoracic, cervical and lumbar spine. Lumbar spine shows grade I anterolisthesis at L4-L5. Severe facet hypertrophy. Diffuse disk bulges present with mild narrowing. Thoracic MRI shows degenerative disk disease. The cervical MRI showed moderate multilevel canal stenosis secondary to the degenerative disk disease.No discitis or epidural abscess seen in hi9s study, with a suspected expansion of the cprd and abnormal signal. He underwent an LP for memingitis. Neurosurgical consultation was requested 11/13. His neurological condition has deteriorated severely. he is minimally responsive, acutely encephalopathic, Developed dysphagia. Labs, Micro, & Vital Signs Results Date Time Temp Pulse Resp B/P (MAP) Pulse Ox O2 Delivery O2 Flow Rate FiO2 11/13/16 11:31 80 26 151/94 11/13/16 10:25 82 22 148/98 11/13/16 07:50 95 Nasal Cannula 2.00 11/13/16 06:00 65 11/13/16 04:00 65 11/13/16 04:00 99.2 65 30 149/95 (113) 95 11/13/16 02:00 69 11/13/16 00:00 99.2 68 30 153/87 (109) 95 11/13/16 00:00 68 11/12/16 22:00 68 11/12/16 20:00 99.4 69 28 141/88 (105) 95 11/12/16 20:00 69 11/12/16 18:00 70 11/12/16 18:00 70 39 133/83 (100) 94 11/12/16 17:00 66 31 143/86 (105) 95 11/12/16 16:00 99.0 63 32 153/88 (109) 96 11/12/16 16:00 63 11/12/16 15:00 65 29 139/86 (103) 96 11/12/16 14:00 63 29 153/87 (109) 97 11/12/16 14:00 63 Constitutional Vital Signs Date Time Temp Pulse Resp B/P (MAP) Pulse Ox O2 Delivery O2 Flow Rate FiO2 11/13/16 11:31 80 26 151/94 11/13/16 10:25 82 22 148/98 11/13/16 07:50 95 Nasal Cannula 2.00 11/13/16 06:00 65 11/13/16 04:00 65 11/13/16 04:00 99.2 65 30 149/95 (113) 95 11/13/16 02:00 69 11/13/16 00:00 99.2 68 30 153/87 (109) 95 11/13/16 00:00 68 11/12/16 22:00 68 11/12/16 20:00 99.4 69 28 141/88 (105) 95 11/12/16 20:00 69 11/12/16 18:00 70 11/12/16 18:00 70 39 133/83 (100) 94 11/12/16 17:00 66 31 143/86 (105) 95 11/12/16 16:00 99.0 63 32 153/88 (109) 96 11/12/16 16:00 63 11/12/16 15:00 65 29 139/86 (103) 96 11/12/16 14:00 63 29 153/87 (109) 97 11/12/16 14:00 63 Physical Exam He is encephalopathic. Minimally responsive. Open eyes to pain Cranial nerve examination demonstrates the pupils to be equal, round, and reactive to light. 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 No motor response to pain Deep tendon reflexes are trace in the biceps, triceps, and brachioradialis, bilaterally, in the upper extremities. In the lower extremities, the patellar and Achilles are 0+, bilaterally. There is a bilateral silent response to plantar stimulation. There is no clonus Cerebellar examination is nor possible due to his neurologial condition Medications Current Medications Current Medications Sodium Chloride 1,000 ml @ 999 mls/hr BOLUS ONCE IV Last administered on 11/08 18:23; Start 11/08/16 at 18:30; Stop 11/08/16 at 19:30; Status DC Sodium Chloride (NS Flush) 2 ml UNSCH PRN IV FLUSH FLUSH AFTER USING IV ACCESS ; Start 11/08/16 at 21:45; Stop 11/10/16 at 10:01; Status DC Sodium Chloride (NS Flush) 2 ml BID IV FLUSH Last administered on 11/10/16 09: 19; Start 11/09/16 at 09:00; Stop 11/10/16 at 10:01; Status DC Naloxone HCl (Narcan Inj) 0.4 mg UNSCH PRN IV SEE LABEL COMMENTS; Start at 21:45 Pneumococcal Polyvalent Vaccine (Pneumovax-23 Inj) 25 mcg ONCE ONCE IM Last administered on 11/09/16 08:18; Start 11/09/16 at 09:00; Stop 11/09/16 at 09:01 ; Status DC Sodium Chloride 1,000 ml @ 84 mls/hr [id number] IV Last administered on 22:50; Start 11/09/16 at 08:00; Stop 11/10/16 at 09:20; Status DC Carbamazepine (TEGretol) 200 mg TID PO Last administered on 11/13/16 10:26; Start 11/09/16 at 14:00 Trazodone HCl (Desyrel) 200 mg TID PO Last administered on 11/09/16 18:32; Start 11/09/16 at 14:00; Stop 11/10/16 at 09:20; Status DC Alprazolam (Xanax) 1 mg Q8H PRN PO ANXIETY Last administered on 11/13/16 03:38 ; Start 11/09/16 at 13:00 Baclofen (Lioresal) 10 mg Q8HR PO Last administered on 11/11/16 05:54; Start 11/09/16 at 14:00; Stop 11/11/16 at 08:27; Status DC Acetaminophen (Tylenol) 650 mg Q4H PRN PO PAIN SCALE 1 TO 4, VANCE, Fever Last administered on 11/13/16 02:15; Start 11/09/16 at 13:15 IV Flush (NS Flush) 2 ml BID IV FLUSH Last administered on 11/13/16 09:00; Start 11/09/16 at 21:00 IV Flush (NS Flush) 2 ml UNSCH PRN IV FLUSH FLUSH AFTER USING IV ACCESS; Start 11/09/16 at 18:00 Aspirin (Aspirin Chew) 81 mg DAILY PO Last administered on 11/10/16 09:19; Start 11/09/16 at 18:00; Stop 11/10/16 at 20:00; Status DC Insulin Aspart (NovoLOG SUPPLEMENTAL SCALE) 1 ACHS SQ ; Start 11/09/16 at 21:00 ; Stop 11/10/16 at 07:22; Status DC Dextrose (D50w (Vial) Inj) 50 ml UNSCH PRN IV PUSH HYPOGLYCEMIA-SEE COMMENTS; Start 11/09/16 at 18:00; Stop 11/10/16 at 07:22; Status DC Glucagon (Glucagon Inj) 1 mg UNSCH PRN OTHER HYPOGLYCEMIA-SEE COMMENTS; Start 11/09/16 at 18:00; Stop 11/10/16 at 07:22; Status DC Ciprofloxacin/ Dextrose 100 ml @ 100 mls/hr Q12H IV ; Start 11/10/16 at 09:00; Stop 11/10/16 at 09:13; Status DC Aztreonam 2000 mg/ Sodium Chloride 100 ml @ 200 mls/hr Q8H IV Last administered on 11/11/16 08:51; Start 11/10/16 at 10:00; Stop 11/11/16 at 11:59 ; Status DC Metronidazole 100 ml @ 100 mls/hr Q8H IV Last administered on 11/11/16 08:51 ; Start 11/10/16 at 11:00; Stop 11/11/16 at 11:58; Status DC Sodium Chloride 1,000 ml @ 999 mls/hr BOLUS ONCE IV Last administered on 11/10 09:52; Start 11/10/16 at 09:15; Stop 11/10/16 at 10:15; Status DC Potassium Chloride/Dextrose/ Sod Cl 1,000 ml @ 100 mls/hr Q10H IV Last administered on 11/12/16 23:59; Start 11/10/16 at 10:00 Heparin Sodium (Porcine) (Heparin Inj) 5,000 units Q12H SQ Last administered on 11/13/16 10:27; Start 11/10/16 at 10:00 Miscellaneous Information Patient in critical care unit? Ass... [id number] .XX ; Start 11/10/16 at 21:15 Chlorhexidine Gluconate (Chlorhexidine 2% Cloth) 3 pack DAILY@04 TOPICAL Last administered on 11/13/16 02:15; Start 11/11/16 at 04:00; Stop 11/15/16 at 04:01 Chlorhexidine Gluconate (Chlorhexidine 2% Cloth) 3 pack UNSCH PRN TOPICAL HYGIENIC CARE; Start 11/10/16 at 21:15; Stop 11/15/16 at 21:12 Ceftaroline Fosamil 600 mg/ Sodium Chloride 100 ml @ 100 mls/hr Q12H IV Last administered on 11/13/16 02:15; Start 11/11/16 at 14:00; Stop 11/13/16 at 12:13 ; Status DC Enalaprilat (Vasotec Inj) 1.25 mg Q6H PRN IV SBP> OR = 180, DBP> OR = 100; Start 11/11/16 at 13:00 Lorazepam (Ativan) 0.5 mg Q6H PRN PO ANXIETY Last administered on 11/13/16 08: 59; Start 11/12/16 at 09:45; Stop 11/13/16 at 11:59; Status DC Potassium Chloride (KCl) 30 meq ONCE ONCE PO Last administered on 11/12/16 10 :34; Start 11/12/16 at 10:30; Stop 11/12/16 at 10:31; Status DC Sodium Chloride 500 ml @ 500 mls/hr Q24H IV ; Start 11/13/16 at 00:15; Stop at 00:22; Status DC Acetaminophen (Tylenol) 650 mg Q24H PO ; Start 11/13/16 at 00:15; Stop 11/13/16 at 00:21; Status DC Dextrose 500 ml @ 30 mls/hr [id number] OTHER ; Start 11/13/16 at 01:04; Stop 11/13 at 01:04; Status DC Diphenhydramine HCl (Benadryl) 25 mg Q24H PO ; Start 11/13/16 at 00:15; Stop at 00:20; Status DC Immune Globulin 20 gm/Syringe / Bag 200 ml @ 17.7 mls/hr Q24H IV Last administered on 11/13/16 10:25; Start 11/13/16 at 09:00; Stop 11/17/16 at 20:18 Diphenhydramine HCl (Benadryl Inj) 50 mg UNSCH PRN IV PUSH ALLERGIC REACTION; Start 11/13/16 at 09:00; Stop 11/19/16 at 08:59 Epinephrine HCl (Adrenalin (1:1000) Inj) 0.3 mg Q10M PRN OTHER ANALPHYLACTIC REACTION; Start 11/13/16 at 09:00; Stop 11/19/16 at 08:59 Dextrose 500 ml @ 30 mls/hr [id number] OTHER Last administered on 11/13/16 09:00 ; Start 11/13/16 at 09:00; Stop 11/16/16 at 20:19 Diphenhydramine HCl (Benadryl) 25 mg Q24H PO Last administered on 11/13/16 10: 26; Start 11/13/16 at 09:00; Stop 11/17/16 at 09:01 Acetaminophen (Tylenol) 650 mg Q24H PO Last administered on 11/13/16 10:26; Start 11/13/16 at 09:00; Stop 11/17/16 at 09:01 Sodium Chloride 500 ml @ 500 mls/hr Q24H IV Last administered on 11/13/16 09: 00; Start 11/13/16 at 09:00; Stop 11/17/16 at 09:59 Gadodiamide (Omniscan Pf Inj) 12 ml STK-MED ONCE IVCONTRAST Last administered on 11/13/16t 09:44; Start 11/13/16 at 09:44; Stop 11/13/16 at 09:45; Status DC Morphine Sulfate (Morphine Inj) 2 mg Q1HR PRN IV PUSH PAIN 1-10; Start at 12:00; Status UNV Lorazepam (Ativan Inj) 1 mg Q15M PRN IV PUSH ANXIETY AND/OR AGITATION; Start at 12:00; Status UNV Ceftaroline Fosamil 600 mg/ Sodium Chloride 100 ml @ 100 mls/hr Q12H IV ; Start 11/13/16 at 14:00; Status UNV Medical Decision Making MDM Remarks Last Impressions Cervical Spine MRI 11/13/16 0000 Signed Impressions: Service Date/Time: Sunday, November 13, 2016 09:12 - CONCLUSION: Significantly abnormal exam with progressive prevertebral soft tissue edema, focal nonenhancing fluid collection anterior to the level of C4-C7 progressive enlargement of the cervical cord with abnormal edema seen throughout the cord. In the absence of a history of trauma these findings are highly concerning for a diffuse infectious process. Aleyda Rush MD Brain MRI 11/13/16 0000 Signed Impressions: Service Date/Time: Sunday, November 13, 2016 09:12 - CONCLUSION: Stable appearance of a focal area of restricted diffusion involving the left cerebellum consistent with an acute infarct. No other abnormality noted.. Aleyda Rush MD Lumbar Puncture Fluoroscopy 11/11/16 0000 Signed Impressions: Service Date/Time: Friday, November 11, 2016 13:40 - CONCLUSION: Uncomplicated fluoroscopically guided lumbar puncture with pressures as above. Yayo Barone Jr., MD Thoracic Spine MRI 11/09/16 0000 Signed Impressions: Service Date/Time: Wednesday, November 09, 2016 16:18 - CONCLUSION: 1. There is degenerative disc disease of the cervical spine which is incompletely evaluated on this study. 2. The thoracic spine is normal for age with minimal degenerative changes and no canal or foraminal stenosis. Petey Oseguera MD Carotid Artery Ultrasound 11/09/16 0000 Signed Impressions: Service Date/Time: Wednesday, November 09, 2016 21:00 - CONCLUSION: 1. Negative for carotid stenosis or significant plaque formation. Vertebral artery flow antegrade bilaterally. Aldair Garcia MD Shoulder X-Ray 11/08/16 Signed Impressions: Service Date/Time: Tuesday, November 08, 2016 18:32 - CONCLUSION: No acute left shoulder abnormality is identified on this two-view examination. There is osteoarthritis at the acromioclavicular joint. Jerry Ghotra MD Lumbar Spine MRI 11/08/16 Signed Impressions: Service Date/Time: Tuesday, November 08, 2016 19:29 - CONCLUSION: 1. Grade 1 anterolisthesis at L4-L5 secondary to severe facet hypertrophy. Diffuse disc bulges present very mildly narrowing the spinal canal and there is mild neural foraminal narrowing bilaterally. 2. 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 3. Very large cystic structure within the pelvis presumably a very distended urinary bladder since it appears midline. Suggest correlation with the clinical examination. Jerry Ghotra MD Head CT 11/08/16 Signed Impressions: Service Date/Time: Tuesday, November 08, 2016 18:39 - CONCLUSION: No acute intracranial abnormality is identified. Jerry Ghotra MD Chest X-Ray 11/08/16 Signed Impressions: Service Date/Time: Tuesday, November 08, 2016 18:31 - CONCLUSION: No acute cardiopulmonary abnormality is identified. Jerry Ghotra MD Cervical Spine CT 11/08/16 Signed Impressions: Service Date/Time: Tuesday, November 08, 2016 18:39 - CONCLUSION: 1. No acute cervical spine abnormality is identified. 2. Multilevel degenerative disc disease. Jerry Ghotra MD Plan Plan Remarks Severe Sepsis present on admission (MODS: Acute renal failure, encephalopathy) Gram positive bacteremia. Probable endocarditis. Cerebellar infarct. Acute bacterial meningitis. Acute renal disease probably related to drug ingestion vs sepsis. History of hepatitis B as reported by patient Acute metabolic encephalopathy: Meningitis, sepsis. Intravenous drug abuse Attending Statement His condition has deteriorated severely. Palliative care consultation. His family his request no further aggressive measures and transferred to hospice Sepsis. Continue Teflaro/Ceftaroline IV. The patient was encephalopathic due to sepsis, but his mental status has improved. Repeat Bld CX x 2. Hepatisis. Hepatitis profile. Check HIV antibody screen Meningitis. Status post LP. Follow up cultures IV ABX Pulmonary. pulmonary toilette, nasotracheal suction, and breathing treatments with nebulizers. Probable endocarditis. 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 Will need further evaluation with a CTA or MRA Nutrition. Oral diet Renal. Consult nephrology for clearance for MRI with cobntrast and CTA brain. Monitor closely urine output, BUN and creatinine Endocrine. Monitor serial Acu checks and SSI as needed in detail ID IV ABX Protonix for stress ulcer prophylaxis Teja hose and SCD's for DVT prophylaxis Discussed with dr Roberts, Very poor prognosis. Will sign off Wicho Suarez MD Nov 13, 2016 13:44
[2016-11-13] MEDS ORDERED: CEFTAROLINE INJ 600 MG in SODIUM CHLORIDE 0.9% INJ 100 ML IV SCH (15:00)
--- NOTE | 2016-11-14 10:39 | HHI.DS ---
Discharge Summary Admission Date Nov 09, 2016 at 18:04 Discharge Date: Dec 15, 2016 Admitting Diagnosis gait dysfunction,aspirin overdose, renal insufficieny, drug overdose (1) Severe sepsis ICD Code: A41.9 - Sepsis, unspecified organism; R65.20 - Severe sepsis without septic shock (2) Myelopathy ICD Code: G95.9 - Disease of spinal cord, unspecified (3) Bacteremia ICD Code: R78.81 - Bacteremia (4) Cardiomyopathy ICD Code: I42.9 - Cardiomyopathy, unspecified (5) Endocarditis ICD Code: I38 - Endocarditis, valve unspecified (6) Myelitis ICD Code: G04.91 - Myelitis, unspecified Procedures None Brief History - From Admission HPI from the admitting physician 61-year-old male with past medical history of psychiatric illness, chronic pain , opiate abuse who presented to the hospital. The patient is a poor historian. The patient states that he came to the hospital because for the last 2 nights he's been having problems with decreased strength and movement in his arms and legs. He states he does not know what happened to his car. When told that he came to the ED by ambulance because he was found unresponsive and was given Narcan for possible opiate overdose, he does state that he remembers being in the ambulance. He does not recall anything else prior to admission. He does use IV heroin. He used to be on methadone previously. He states a few months ago his girlfriend jumped off a second story [place] and he started using IV heroin. He complains of head and neck pain. He is asking for a neck brace. He does take aspirin for neck pain. He denies any acute injury. Currently he can move his right arm, but can't move his left arm or both his legs at all. He doesn't remember if he's tried walking since admission. CBC/BMP: 11/13/16 0337 11/13/16336 Significant Findings Laboratory Tests Test 11/11/16 13:50 11/12/16 03:26 11/12/16 12:05 11/13/16 03:37 CSF Supernatant Color (tube 1) XANTHOCHROMIC (CLEAR) CSF Gross Blood (Tube 1) TRACE (0) CSF Supernatant Color (tube 2) XANTHOCHROMIC (CLEAR) CSF Supernatant Color (tube 3) XANTHOCHROMIC (CLEAR) CSF Supernatant Color (tube 4) XANTHOCHROMIC (CLEAR) CSF WBC (Tube 4) 494 /MM3 (0-10) CSF RBC (Tube 4) 32 /MM3 (NONE) CSF Glucose 11 MG/DL (40-80) CSF Lactic Acid 6.1 MMOL/L (0.0-3.0) CSF Total Protein 597.9 MG/DL (15.0-45.0) Red Blood Count 3.02 MIL/MM3 (4.50-5.90) 3.12 MIL/MM3 (4.50-5.90) Hemoglobin 9.5 GM/DL (13.0-17.0) 9.6 GM/DL (13.0-17.0) Hematocrit 28.0 % (39.0-51.0) 29.0 % (39.0-51.0) Platelet Count 146 TH/MM3 (150-450) 149 TH/MM3 (150-450) Blood Urea Nitrogen 53 MG/DL (7-18) 44 MG/DL (7-18) Random Glucose 118 MG/DL (74-106) 107 MG/DL (74-106) Total Protein 5.5 GM/DL (6.4-8.2) Albumin 1.6 GM/DL (3.4-5.0) Calcium Level 8.0 MG/DL (8.5-10.1) 7.9 MG/DL (8.5-10.1) Alkaline Phosphatase 129 U/L (45-117) Aspartate Amino Transf (AST/SGOT) 52 U/L (15-37) Potassium Level 3.4 MEQ/L (3.5-5.1) Chloride Level 110 MEQ/L (98-107) 109 MEQ/L (98-107) C-Reactive Protein 22.00 MG/DL (0.00-0.30) White Blood Count 11.9 TH/MM3 (4.0-11.0) Imaging Last Impressions Cervical Spine MRI 11/13/16 0000 Signed Impressions: Service Date/Time: Sunday, November 13, 2016 09:12 - CONCLUSION: Significantly abnormal exam with progressive prevertebral soft tissue edema, focal nonenhancing fluid collection anterior to the level of C4-C7 progressive enlargement of the cervical cord with abnormal edema seen throughout the cord. In the absence of a history of trauma these findings are highly concerning for a diffuse infectious process. Aleyda Rush MD Brain MRI 11/13/16 0000 Signed Impressions: Service Date/Time: Sunday, November 13, 2016 09:12 - CONCLUSION: Stable appearance of a focal area of restricted diffusion involving the left cerebellum consistent with an acute infarct. No other abnormality noted.. Aleyda Rush MD Lumbar Puncture Fluoroscopy 11/11/16 0000 Signed Impressions: Service Date/Time: Friday, November 11, 2016 13:40 - CONCLUSION: Uncomplicated fluoroscopically guided lumbar puncture with pressures as above. Yayo Barone Jr., MD Thoracic Spine MRI 11/09/16 0000 Signed Impressions: Service Date/Time: Wednesday, November 09, 2016 16:18 - CONCLUSION: 1. There is degenerative disc disease of the cervical spine which is incompletely evaluated on this study. 2. The thoracic spine is normal for age with minimal degenerative changes and no canal or foraminal stenosis. Petey Oseguera MD Carotid Artery Ultrasound 11/09/16 0000 Signed Impressions: Service Date/Time: Wednesday, November 09, 2016 21:00 - CONCLUSION: 1. Negative for carotid stenosis or significant plaque formation. Vertebral artery flow antegrade bilaterally. Aldair Garcia MD Shoulder X-Ray 11/08/16 0000 Signed Impressions: Service Date/Time: Tuesday, November 08, 2016 18:32 - CONCLUSION: No acute left shoulder abnormality is identified on this two-view examination. There is osteoarthritis at the acromioclavicular joint. Jerry Ghotra MD Lumbar Spine MRI 11/08/16 0000 Signed Impressions: Service Date/Time: Tuesday, November 08, 2016 19:29 - CONCLUSION: 1. Grade 1 anterolisthesis at L4-L5 secondary to severe facet hypertrophy. Diffuse disc bulges present very mildly narrowing the spinal canal and there is mild neural foraminal narrowing bilaterally. 2. 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 3. Very large cystic structure within the pelvis presumably a very distended urinary bladder since it appears midline. Suggest correlation with the clinical examination. Jerry Ghotra MD Head CT 11/08/16 0000 Signed Impressions: Service Date/Time: Tuesday, November 08, 2016 18:39 - CONCLUSION: No acute intracranial abnormality is identified. Jerry Ghotra MD Chest X-Ray 11/08/16 0000 Signed Impressions: Service Date/Time: Tuesday, November 08, 2016 18:31 - CONCLUSION: No acute cardiopulmonary abnormality is identified. Jerry Ghotra MD Cervical Spine CT 11/08/16 0000 Signed Impressions: Service Date/Time: Tuesday, November 08, 2016 18:39 - CONCLUSION: 1. No acute cervical spine abnormality is identified. 2. Multilevel degenerative disc disease. Jerry Ghotra MD PE at Discharge GENERAL: More lethargic compared to yesterday. Cannot move any extremities. CARDIOVASCULAR: Normal rate and regular rhythm without murmurs, gallops, or rubs. RESPIRATORY: Diminished breath sounds at the bases. Otherwise clear to auscultation bilaterally. GASTROINTESTINAL: Abdomen soft, non-tender, non-distended. Normal active bowel sounds MUSCULOSKELETAL: Extremities without cyanosis, or edema. NEURO: Lethargic. Cannot move any extremities. Areflexic. PSYCH: Calm Pt update on day of discharge Patient condition continue to deteriorate. His family opted for comfort care only with Hospice. Hospital Course 61-year-old male with a medical history significant for psychiatric illness, chronic pain, opiate abuse who was admitted with overdose and decreased lower extremity strength. Patient is found to have a lacunar stroke. Patient progressed to having bilateral upper and lower extremity paralysis. He was septic with gram-positive cocci bacteremia. Evaluation and treatment course detailed below: CVA/ Flacid areflexic quadriplegia: - Neurology following and indicated the stroke is small and not the cause of his paralysis. Guillain-Burnett, cord infarcts being considered. HIC, Lyme & Sarcoidosis in the differential diagnosis - LP ordered. CSF is abnormal, xanthochromic, WBC high at 494, protein high at 597, glucose low at 11. Infectious and noninfectious etiology being considered. Patient is bacteremic. Onset of paralysis seem it developed over 4- 5 days. - Neurosurgery evaluated the patient. No surgical intervention for now. MRI with contrast recommended. - Neurology following. Patient started on IVIG for 5 treatments on 11/13. Renal functions recovered. MRI C spine w/o & w contrast MRI brain w/o & w contrast - Repeat MRI shows progression of cord edema with prevertebral soft tissue edema. Sepsis with gram-positive cocci bacteremia: Patient is a known IV drug user. He was found down. He presented with leukocytosis, have since developed a fever. Abnormal urinalysis. Chest x-ray unremarkable - Appreciate infectious disease following, - Antibiotics switched to Ceftaroline. - 2-D echo did not rule out endocarditis. Patient was too unstable for IVY. Probable drug overdose: Patient's toxicology was positive for cocaine, opiates, and benzodiazepines. Salicylate level slightly above normal. Patient was found down and reportedly had CPR. He responded to Narcan given by EMS. Acute renal failure: Likely prerenal azotemia. Resolved with IV fluid. Dr. Roberts and myself int he presence of a nurse discussed with the patient's family, mother, father and his older sister. At this time they requested to transition the patient to Hospice and transition him to comfort care as they strongly believe given the patient's condition and minimal chance of recovery, he will not want to live in this condition. Pt Condition on Discharge: Deteriorating Discharge Disposition: Hospice/Med Facility Discharge Time: > 30 minutes Discharge Instructions DIET: Follow Instructions for: Nothing By Mouth Activities you can perform: See Additionl Instruction, Continue Bedrest Other Activity Instructions: Bogdan Garcia MD Nov 14, 2016 10:38
[2016-11-14 11:55] LABS: LYME IGG IMMUNOBLOT CSF 2 bands (None Detected); LYME IGM IMMUNOBLOT CSF None Detected bands (None Detected)
[2016-11-16 17:51] LABS: VDRL CSF NON-REACTIVE (NON-REACTVE)
[2016-11-16 23:50] LABS: GM-1 AB IGG <1:800 titer (<1:800); GM-1 AB IGM <1:800 titer (<1:800)
== END 2016-11-13 19:30 | disposition hospice, inpatient (51) | DRG 871 ==
LOC: NEPC 17:30 → NEDA 21:41 → NEPGCP 11-09 00:09 → OBSVTOIN 11-09 18:04 → HIMW 11-10 10:40
PROVIDERS: ADMIT Family Medicine; ATTEND Family Medicine
PROC: 009U3ZX Drainage of Spinal Canal, Percutaneous Approach, Diagnostic (ICD-10-PCS; principal; 2016-11-11)
DX: A41.01 Sepsis due to Methicillin susceptible Staphylococcus aureus (principal); I63.9 Cerebral infarction, unspecified; G06.1 Intraspinal abscess and granuloma; G00.9 Bacterial meningitis, unspecified; I33.0 Acute and subacute infective endocarditis; G82.50 Quadriplegia, unspecified; M60.08 Infective myositis, other site; G93.41 Metabolic encephalopathy; N17.9 Acute kidney failure, unspecified; I42.9 Cardiomyopathy, unspecified; E87.1 Hypo-osmolality and hyponatremia; I76 Septic arterial embolism; R65.20 Severe sepsis without septic shock; G89.29 Other chronic pain; E86.0 Dehydration; E87.6 Hypokalemia; R13.10 Dysphagia, unspecified; R29.2 Abnormal reflex; F11.10 Opioid abuse, uncomplicated; F17.210 Nicotine dependence, cigarettes, uncomplicated; M50.30 Other cervical disc degeneration, unspecified cervical region; T40.1X1A Poisoning by heroin, accidental (unintentional), initial encounter; Z51.5 Encounter for palliative care; M48.02 Spinal stenosis, cervical region; M46.06 Spinal enthesopathy, lumbar region; F41.9 Anxiety disorder, unspecified; F32.9 Major depressive disorder, single episode, unspecified; Z88.1 Allergy status to other antibiotic agents; Z88.0 Allergy status to penicillin
CPT/HCPCS: 62270; 70450; 70551; 70553; 71010; 72125; 72141; 72146; 72148; 72156; 73030; 77003; 80048; 80053; 80061; 80074; 80076; 80307; 81001; 82945; 82948; 83036; 83520; 83605; 84157; 84484; 85007; 85025; 85027; 85610; 85730; 86140; 86403; 86592; 86618; 86703; 87015; 87040; 87070; 87086; 87116; 87186; 87205; 87206; 87641; 88112; 89051; 90732; 93306; 93880; 95819; 96360; A9579; G0378; G8987-GP; G8988-GP; J0712; J1459; J1644; J2270; J3480; J7030; J7040; J7060; L0120